=== PATIENT | female | born 1955 | race Caucasian/White ===

== ENCOUNTER 2017-01-30 12:17 | Inpatient (IN) | payer MEDICARE ==
[2017-01-30] VITALS (26 sets, daily range): BP systolic 96–121; BP diastolic 46–73
[~2017-01-30] VITALS: Ht 162.6 cm; Wt 55.0 kg
[~2017-01-30 12:17] MED LIST: ACETAMIN PO; AMITRIPTYLINE 225 MG PO; AMLODIPINE5 M1 PO; ASPIRIN 325MG325 MG PO; ATORVASTATIN CA40 MG PO; BENTYL20 M1 PO; BUTAL PO; CARBAMAZEPINE200 M3 PO; DICLOFENAC 50MG50 MG PO; DICYCLOMINE HCL20 MG PO; DULERA1 ARO IH; FLORASTOR250 M1 PO; FLUOXETINE20 MG PO; FUROSEMIDE 40MG40 M1 PO; GABAPENTIN300 MG PO; KEPPRA250 MG PO; LOMOTIL 2.5MG.2.5 MG PO; LOSARTAN POTAS100 MG PO; METOCLOPRAMIDE10 M2 PO; METOPROLOL50 MG PO; MICRO-K 10 MEQ10 MEQ PO; NAPROSYN 500MG500 MG PO; OMEPRAZOLE DR20 MG PO; PRAVASTATIN SOD80 MG PO; PROAIR HFA0.09 MG/AC IH; SYMBICORT 10.10.2 M1 IH; VITAMIN B121000 MC2 SL; VITAMIN D32000 I2 PO
--- NOTE | 2017-01-30 13:19 | PHARMACY CLINIC NOTE ---
Patient Demographics Patient Demographics Admission date: 01/30/17 Date: 01/30/17 Time: 1319 Allergies Coded Allergies: No Known Allergies (09/19/16) HEIGHT- FT: 5 IN: 4.00 VTE General Information Disclaimer The following section includes nursing documentation that has been pulled in for pharmacy review. VTE prophylaxis [id number] VTE prophylaxis ordered? Yes Type of prophylaxis/treatment: NELLIE at [id number]
[2017-01-30 14:20] LABS: LYMPH # 2.2 K/mm3 (0.7-4.5); LYMPH % 15.4 % (10-50.0)
[2017-01-30 14:25] LABS: HEMOGLOBIN 4.7 g/dL (12.2-16.2)
[2017-01-30] MEDS ORDERED: DICLOFENAC SODI75 M3 PO (15:28)
[2017-01-30] MEDS ORDERED: LIALDA1.2 GM PO (15:30)
--- NOTE | 2017-01-30 15:32 | HISTORY AND PHYSICAL REPORT ---
History and Physical ([facility]) Date of admission: 01/30/17 Chief complaint: anemia; diarrhea, nausea and vomiting History: History of Present Illness: Ms Martinez is a 61 year old female with a history of Seizure disorder, ASCVD, PVD, HTN, COPD and newly diagnosed Crohns disease who presented to the office of [facility] with nausea, vomiting and diarrhea. She stated that she had been vomiting for about 3 days and unable to retain food or fluids. Her also stated that she was unable to retain her medications. She did have some bloody stools but no hematemesis. In the office she was noted to be very pale. CBC revealed a H&H of 4.2/16 with a WBC of 27.1. She was then directed to [facility] for adm for PRBC infusion and further evaluation and treatment. Patient describes fever, abdominal discomfort. She states that she has not felt well for awhile. He adds that her sister was sick and just . Romina has been sleeping most of the time for about 1 1/2 weeks. She has been followed by Dr. Adam. Colonoscopy 10/2017 reveal Crohn's. She became constipated and was started on Miralaz with metamucil after which she developed diarrhea. When she saw Dr. Mike in the office this had cleared and she had just started to eat again. H&H at that time was 11.8/36.5. Past Medical History: Medical History: CAD? Yes Angina: No DC: Yes Hypertension? Yes Hyperlipidemia? Yes CHF? No DVT? No PE? No COPD? Yes Asthma? Yes Anemia? Yes GERD? Yes Gastric ulcers? No GI Bleed? No Hernia? No Thyroid Problems? No Hypothyroidism? No CVA? No Seizures? Yes Diabetes? No Renal Insuffiency? No UTI? No Stones? No GB Disease: No Nephritic Syndrome? No Asplenia? No Hepatitis? No Sickle Cell Disease? No Arthritis? No Migraines? Yes Cataracts? No Glaucoma? No MRSA? No HIV? No TB? No Anxiety? Yes Depression? Yes Cancer? No More? Yes Additional hx: CDIFF ANEMIA Crohns Ischemic colitis Surgical history: Previous Surgery?Y HysterectPARTIAL CABG X 3 NECK SX FOR DISC TOE AMPUTATION LEG STENT SPINAL STIMULATOR Allergies: Coded Allergies: prednisone (01/30/17) Family History: Family history: Postive for: CAD. Social History: Smoking Hx Tobacco: No Smoker: Former Smoker Type: Cigarettes Packs/day: 1 1/2 - 2 Packs Are you exposed to second hand No Alcohol: Alcohol: No Hx of Drug Use: Drug Use? No Patien't marital status is: Review of Systems: Constitutional Positive for: chills, fatigue, weak. ENT No: sore throat. Cardiovascular Positive for: edema, palpitations. No: chest pain. Respiratory Positive for: shortness of air, hemoptysis, non-productive. GI Positive for: GERD, diarrhea, hematochezia, nausea, vomitting. No: constipation , hematemeis, melena. (female) No: frequency, hematuria. Neurological Positive for: dizziness, headache, light headed, seizure, weakness. No: confusion, syncope. Musculoskeletal Positive for: joint pain. Physical Exam: Vital signs: 1ST Vital Signs Result Date Time Pulse Ox 100 01/30 1359 B/P 111/70 01/30 1359 O2 Delivery ROOM AIR 01/30 1359 Temp 100.0 01/30 135 Pulse 100 01/30 1359 Resp 20 01/30 1359 Exam: General appearance: alert, no acute distress, thin (frail), fever, chilling; lying with eyes closed; responds readily Eyes: anicteric ENT: dry mucous membranes Neck: non-tender, no carotid bruit, lymphadenopathy (absent), thyroid (normal ) Cardiovascular: regular rate & rhythm (HR 95/min on monitor) Respiratory: clear to auscultation, diminished breath sounds (posterior) ABD: non-distended, soft, bowel sounds present, tenderness, diffusely tender Extremities: no peripheral edema, no calf tenderness, NELLIE hose on Skin: dry, warm, pale Neuro: alert, oriented, speech clear Lab data: Labs: Laboratory Tests 01/30/17 1350: Sodium 131 L, Potassium 4.1, Chloride 97 L, Carbon Dioxide 12 L, BUN 7, Creatinine 1.0, Estimated Creat Clear 44 L, Estimated GFR (MDRD) 57 L, Glucose 138 H, Calcium 7.8 L, Ferritin 91, Total Bilirubin 0.5, AST 20, ALT 20, Alkaline Phosphatase 112, Total Protein 5.8 L, Albumin 1.6 L, Globulin 4.2 H, Albumin/Globulin Ratio 0.4 L, Amylase 45, Lipase 34 L, WBC 14.2 H, RBC 1.64 L, Hgb 4.7 *L, Hct 16.1 *L, MCV 98.5 H, RDW 16.7, Plt Count 651 H, MPV 6.5 L, Gran % 79.9, Gran # 11.4 H, Lymphocytes % 15.4, Monocytes % 4.7, Eosinophils % 0.0 L, Basophils % 0.1, Lymphocytes # 2.2, Monocytes # 0.7, Eosinophils # 0.0, Basophils # 0.0, PUBS MCHC 29.3 L, MCH 28.9 Microbiology 01/30 1400 BLOOD: Anaerobic Blood Culture - RECD 01/30 1400 BLOOD: Aerobic Blood Culture - RECD 01/30 1350 BLOOD: Anaerobic Blood Culture - RECD 01/30 1350 BLOOD: Aerobic Blood Culture - RECD Diagnosis(es): 1. Crohn's colitis 2. Anemia Status: Resolved 3. Acute gastroenteritis 4. Leukocytosis 5. Seizure disorder Status: Chronic Plan: abx; diarrhea studies; will give 4 units of PRBC now; blood cultures; DUonebs Further tests and tx will be dependent on patient response and test results. (Radha Quiroz APRN) Past Medical History: Medications: Active Scripts BUDESONIDE/FORMOTEROL FUMARATE (Symbicort 160-4.5 Mcg Inhaler) 2 PUFFS IH BID #1 AER Ref 2 Prov: 10/04/16 Discontinued Scripts Saccharomyces Boulardii (Florastor) 250 MG PO TID #90 CAP Ref 2 Prov: 10/04/16 DC: 01/30/17 1530 Dicyclomine Hcl (Dicyclomine Tab) 20 MG PO Q6HP PRN abdominal cramping #30 TAB Ref 2 Prov: 10/04/16 DC: 01/30/17 1530 Reported Medications Diclofenac Sodium (Diclofenac Sodium Dr) 75 MG PO BID Levetiracetam (Keppra) 250 MG PO BID BUTALBIT/ACETAMIN/CAFF/CODEINE (Pnypwk-Rklb-Egqyqohbdce-Codein) 1 EACH PO Q6HP PRN MIGRAINES Furosemide 20 MG PO DAILY Atorvastatin Calcium 40 MG PO QHS #30 TAB POTASSIUM CHL (Potassium Chloride) 10 MEQ PO QHS Mesalamine (Lialda) 2.4 GM PO BID L Gasseri/B Bifidum/B Longum (Secure[employer] Colon Health Capsule) 1 EACH PO DAILY Omeprazole (Omeprazole Dr) 20 MG PO DAILY Amitriptyline Hcl (Amitriptyline) 25 MG PO QHS Diagnosis(es): 1. Anemia Status: Acute 2. Nausea and vomiting in adult Status: Acute 3. Acute gastroenteritis Status: Acute 4. Leukocytosis Status: Acute 5. Seizure disorder Status: Chronic 6. Tobacco abuse Status: Chronic 7. Hyperlipemia Status: Chronic 8. HTN (hypertension) Status: Chronic 9. COPD (chronic obstructive pulmonary disease) Status: Chronic 10. Colitis Status: Chronic 11. Malnutrition, calorie Status: Chronic 12. Fever Status: Acute 13. Underweight Status: Chronic 14. Hx of CABG Status: Chronic 15. History of CHF (congestive heart failure) Status: Chronic 16. CAD (coronary artery disease) Status: Chronic Plan: Patient seen in the office today and again here at [facility]. Will transfuse 4 units of PRBCs tonight and treat with Rocephin and Flagyl, await cultures and stool studies. (Chapito Carlos MD) at 1531 at [phone]
--- NOTE | 2017-01-30 15:32 | HISTORY AND PHYSICAL REPORT ---
History and Physical ([facility]) Date of admission: 01/30/17 Chief complaint: anemia; diarrhea, nausea and vomiting History: History of Present Illness: Ms Martinez is a 61 year old female with a history of Seizure disorder, ASCVD, PVD, HTN, COPD and newly diagnosed Crohns disease who presented to the office of [facility] with nausea, vomiting and diarrhea. She stated that she had been vomiting for about 3 days and unable to retain food or fluids. Her also stated that she was unable to retain her medications. She did have some bloody stools but no hematemesis. In the office she was noted to be very pale. CBC revealed a H&H of 4.2/16 with a WBC of 27.1. She was then directed to [facility] for adm for PRBC infusion and further evaluation and treatment. Patient describes fever, abdominal discomfort. She states that she has not felt well for awhile. He adds that her sister was sick and just . Romina has been sleeping most of the time for about 1 1/2 weeks. She has been followed by Dr. Adam. Colonoscopy 10/2017 reveal Crohn's. She became constipated and was started on Miralaz with metamucil after which she developed diarrhea. When she saw Dr. Mike in the office this had cleared and she had just started to eat again. H&H at that time was 11.8/36.5. Past Medical History: Medical History: CAD? Yes Angina: No AK: Yes Hypertension? Yes Hyperlipidemia? Yes CHF? No DVT? No PE? No COPD? Yes Asthma? Yes Anemia? Yes GERD? Yes Gastric ulcers? No GI Bleed? No Hernia? No Thyroid Problems? No Hypothyroidism? No CVA? No Seizures? Yes Diabetes? No Renal Insuffiency? No UTI? No Stones? No GB Disease: No Nephritic Syndrome? No Asplenia? No Hepatitis? No Sickle Cell Disease? No Arthritis? No Migraines? Yes Cataracts? No Glaucoma? No MRSA? No HIV? No TB? No Anxiety? Yes Depression? Yes Cancer? No More? Yes Additional hx: CDIFF ANEMIA Crohns Ischemic colitis Surgical history: Previous Surgery?Y HysterectPARTIAL CABG X 3 NECK SX FOR DISC TOE AMPUTATION LEG STENT SPINAL STIMULATOR Allergies: Coded Allergies: prednisone (01/30/17) Family History: Family history: Postive for: CAD. Social History: Smoking Hx Tobacco: No Smoker: Former Smoker Type: Cigarettes Packs/day: 1 1/2 - 2 Packs Are you exposed to second hand No Alcohol: Alcohol: No Hx of Drug Use: Drug Use? No Patien't marital status is: Review of Systems: Constitutional Positive for: chills, fatigue, weak. ENT No: sore throat. Cardiovascular Positive for: edema, palpitations. No: chest pain. Respiratory Positive for: shortness of air, hemoptysis, non-productive. GI Positive for: GERD, diarrhea, hematochezia, nausea, vomitting. No: constipation , hematemeis, melena. (female) No: frequency, hematuria. Neurological Positive for: dizziness, headache, light headed, seizure, weakness. No: confusion, syncope. Musculoskeletal Positive for: joint pain. Physical Exam: Vital signs: 1ST Vital Signs Result Date Time Pulse Ox 100 01/30 1359 B/P 111/70 01/30 1359 O2 Delivery ROOM AIR 01/30 1359 Temp 100.0 01/30 135 Pulse 100 01/30 1359 Resp 20 01/30 1359 Exam: General appearance: alert, no acute distress, thin (frail), fever, chilling; lying with eyes closed; responds readily Eyes: anicteric ENT: dry mucous membranes Neck: non-tender, no carotid bruit, lymphadenopathy (absent), thyroid (normal ) Cardiovascular: regular rate & rhythm (HR 95/min on monitor) Respiratory: clear to auscultation, diminished breath sounds (posterior) ABD: non-distended, soft, bowel sounds present, tenderness, diffusely tender Extremities: no peripheral edema, no calf tenderness, NELLEI hose on Skin: dry, warm, pale Neuro: alert, oriented, speech clear Lab data: Labs: Laboratory Tests 01/30/17 1350: Sodium 131 L, Potassium 4.1, Chloride 97 L, Carbon Dioxide 12 L, BUN 7, Creatinine 1.0, Estimated Creat Clear 44 L, Estimated GFR (MDRD) 57 L, Glucose 138 H, Calcium 7.8 L, Ferritin 91, Total Bilirubin 0.5, AST 20, ALT 20, Alkaline Phosphatase 112, Total Protein 5.8 L, Albumin 1.6 L, Globulin 4.2 H, Albumin/Globulin Ratio 0.4 L, Amylase 45, Lipase 34 L, WBC 14.2 H, RBC 1.64 L, Hgb 4.7 *L, Hct 16.1 *L, MCV 98.5 H, RDW 16.7, Plt Count 651 H, MPV 6.5 L, Gran % 79.9, Gran # 11.4 H, Lymphocytes % 15.4, Monocytes % 4.7, Eosinophils % 0.0 L, Basophils % 0.1, Lymphocytes # 2.2, Monocytes # 0.7, Eosinophils # 0.0, Basophils # 0.0, PUBS MCHC 29.3 L, MCH 28.9 Microbiology 01/30 1400 BLOOD: Anaerobic Blood Culture - RECD 01/30 1400 BLOOD: Aerobic Blood Culture - RECD 01/30 1350 BLOOD: Anaerobic Blood Culture - RECD 01/30 1350 BLOOD: Aerobic Blood Culture - RECD Diagnosis(es): 1. Crohn's colitis 2. Anemia Status: Resolved 3. Acute gastroenteritis 4. Leukocytosis 5. Seizure disorder Status: Chronic Plan: abx; diarrhea studies; will give 4 units of PRBC now; blood cultures; DUonebs Further tests and tx will be dependent on patient response and test results. (Radha Quiroz APRN) Past Medical History: Medications: Active Scripts BUDESONIDE/FORMOTEROL FUMARATE (Symbicort 160-4.5 Mcg Inhaler) 2 PUFFS IH BID #1 AER Ref 2 Prov: 10/04/16 Discontinued Scripts Saccharomyces Boulardii (Florastor) 250 MG PO TID #90 CAP Ref 2 Prov: 10/04/16 DC: 01/30/17 1530 Dicyclomine Hcl (Dicyclomine Tab) 20 MG PO Q6HP PRN abdominal cramping #30 TAB Ref 2 Prov: 10/04/16 DC: 01/30/17 1530 Reported Medications Diclofenac Sodium (Diclofenac Sodium Dr) 75 MG PO BID Levetiracetam (Keppra) 250 MG PO BID BUTALBIT/ACETAMIN/CAFF/CODEINE (Bpvbyo-Wcui-Xrznihhjmui-Codein) 1 EACH PO Q6HP PRN MIGRAINES Furosemide 20 MG PO DAILY Atorvastatin Calcium 40 MG PO QHS #30 TAB POTASSIUM CHL (Potassium Chloride) 10 MEQ PO QHS Mesalamine (Lialda) 2.4 GM PO BID L Gasseri/B Bifidum/B Longum ([employer] Colon Health Capsule) 1 EACH PO DAILY Omeprazole (Omeprazole Dr) 20 MG PO DAILY Amitriptyline Hcl (Amitriptyline) 25 MG PO QHS Diagnosis(es): 1. Anemia Status: Acute 2. Nausea and vomiting in adult Status: Acute 3. Acute gastroenteritis Status: Acute 4. Leukocytosis Status: Acute 5. Seizure disorder Status: Chronic 6. Tobacco abuse Status: Chronic 7. Hyperlipemia Status: Chronic 8. HTN (hypertension) Status: Chronic 9. COPD (chronic obstructive pulmonary disease) Status: Chronic 10. Colitis Status: Chronic 11. Malnutrition, calorie Status: Chronic 12. Fever Status: Acute 13. Underweight Status: Chronic 14. Hx of CABG Status: Chronic 15. History of CHF (congestive heart failure) Status: Chronic 16. CAD (coronary artery disease) Status: Chronic Plan: Patient seen in the office today and again here at [facility]. Will transfuse 4 units of PRBCs tonight and treat with Rocephin and Flagyl, await cultures and stool studies. (Chapito Carlos MD) at 1531 at [phone]
[2017-01-30] MEDS ORDERED: PHILLIPS' COLO1 EACH PO (15:50)
[2017-01-30 15:55] LABS: ABO BLOOD TYPE O; ANTIHUMAN GLOB CROSSMATCH COMPAT; RH BLOOD TYPE NEGATIVE
[2017-01-30 15:56] LABS: ANTIHUMAN GLOB CROSSMATCH COMPAT
[2017-01-30 21:35] LABS: URINE BILIRUBIN - DIPSTICK NEGATIVE (NEG); URINE BLOOD NEGATIVE (NEG)
[2017-01-30 21:45] LABS: URINE SQUAMOUS CELLS OCC #/hpf (0-5)
[2017-01-31] VITALS (31 sets, daily range): BP systolic 101–160; BP diastolic 58–92
[2017-01-31 00:35] LABS: ANTIHUMAN GLOB CROSSMATCH COMPAT
--- NOTE | 2017-01-31 08:26 | ACUTE CARE PROGRESS NOTE (QUA) ---
Progress Notes Subjective Date 01/31/17 Time 0821 Note Patient states she has had a horrible night. She states she's had stomach cramps all night long that are very severe. She denies any nausea, vomiting, or diarrhea. She did get blood last night. Objective Findings Last VS-Temp:97.5 B/P:133/85 Pulse:78 Resp:18 SaO2:99 ROOM AIR Last weight lbs:101 oz:3 K.898 Method:Bed Scales Laboratory Tests 01/31/17 0505: Misc Test Units BLOOD UNIT RELEASE 01/31/17 0034: Misc Test Units BLOOD UNIT RELEASE 01/30/17 1925: Misc Test Units BLOOD UNIT RELEASE 01/30/17 1604: Misc Test Units BLOOD UNIT RELEASE 01/30/17 1350: MCH 28.9 01/30/17 1350: Sodium 131 L, Potassium 4.1, Chloride 97 L, Carbon Dioxide 12 L, BUN 7, Creatinine 1.0, Estimated Creat Clear 44 L, Estimated GFR (MDRD) 57 L, Glucose 138 H, Calcium 7.8 L, Ferritin 91, Total Bilirubin 0.5, AST 20, ALT 20, Alkaline Phosphatase 112, Total Protein 5.8 L, Albumin 1.6 L, Globulin 4.2 H, Albumin/Globulin Ratio 0.4 L, Amylase 45, Lipase 34 L, WBC 14.2 H, RBC 1.64 L, Hgb 4.7 *L, Hct 16.1 *L, MCV 98.5 H, RDW 16.7, Plt Count 651 H, MPV 6.5 L, Gran % 79.9, Gran # 11.4 H, Lymphocytes % 15.4, Monocytes % 4.7, Eosinophils % 0.0 L, Basophils % 0.1, Lymphocytes # 2.2, Monocytes # 0.7, Eosinophils # 0.0, Basophils # 0.0, PUBS MCHC 29.3 L, Antibody Screen NEGATIVE, Miscellaneous Test NEGATIVE Microbiology 01/30 1400 BLOOD: Anaerobic Blood Culture - RECD 01/30 1400 BLOOD: Aerobic Blood Culture - RECD 01/30 1350 BLOOD: Anaerobic Blood Culture - RECD 01/30 1350 BLOOD: Aerobic Blood Culture - RECD Exam General appearance: alert, awake, does not appear to feel well Cardiovascular: regular rate & rhythm Respiratory: clear to auscultation ABD: non-distended, no rebound, soft, no guarding, diffusely ttp but worse in the epigastric area, hypoactive BS Assessment/Plan Problem List 1. Anemia Status: Acute 2. Nausea and vomiting in adult Status: Acute 3. Acute gastroenteritis Status: Acute 4. Leukocytosis Status: Acute 5. Seizure disorder Status: Chronic 6. Tobacco abuse Status: Chronic 7. Hyperlipemia Status: Chronic 8. HTN (hypertension) Status: Chronic 9. COPD (chronic obstructive pulmonary disease) Status: Chronic 10. Colitis Status: Chronic 11. Malnutrition, calorie Status: Chronic 12. Fever Status: Acute 13. Underweight Status: Chronic 14. Hx of CABG Status: Chronic 15. History of CHF (congestive heart failure) Status: Chronic 16. CAD (coronary artery disease) Status: Chronic Plan: Still awaiting labs today. Will discuss giving the patient something for abdominal cramping with Dr. Carlos. We will also get an amylase and lipase. This inpt stay is expected to cross 2 MNs from start of care Yes (Veronica Ludwig) Assessment/Plan Problem List 1. Anemia Status: Acute 2. Nausea and vomiting in adult Status: Acute 3. Acute gastroenteritis Status: Acute 4. Leukocytosis Status: Acute 5. Seizure disorder Status: Chronic 6. Tobacco abuse Status: Chronic 7. Hyperlipemia Status: Chronic 8. HTN (hypertension) Status: Chronic 9. COPD (chronic obstructive pulmonary disease) Status: Chronic 10. Colitis Status: Chronic 11. Malnutrition, calorie Status: Chronic 12. Fever Status: Acute 13. Underweight Status: Chronic 14. Hx of CABG Status: Chronic 15. History of CHF (congestive heart failure) Status: Chronic 16. CAD (coronary artery disease) Status: Chronic Comments: Patient seen and agree with above note. (Chapito Carlos MD) at 0826 at 0901
[2017-01-31 08:41] LABS: Iron 17 ug/dL (27-159); Iron Saturation 7 % (15-55); UIBC 216 ug/dL (131-425)
[2017-01-31 08:45] LABS: LYMPH # 0.5 K/mm3 (0.7-4.5); LYMPH % 3.5 % (10-50.0)
[2017-01-31 08:50] LABS: HEMOGLOBIN 13.3 g/dL (12.2-16.2)
[2017-01-31 10:56] LABS: NEUTROPHILS 71 % (42-76)
[2017-02-01] VITALS (31 sets, daily range): BP systolic 105–158; BP diastolic 72–95
[2017-02-01 05:52] LABS: HEMOGLOBIN 13.2 g/dL (12.2-16.2); LYMPH # 0.7 K/mm3 (0.7-4.5); LYMPH % 3.3 % (10-50.0)
[2017-02-01 08:27] LABS: URINE BLOOD NEGATIVE (NEG)
--- NOTE | 2017-02-01 08:29 | ACUTE CARE PROGRESS NOTE (QUA) ---
Progress Notes Subjective Date 02/01/17 Time 0821 Note Pt states she feels worse today. Her abdomen is hurting all over but worse in the epigastric area. She has had an episode of vomiting. No diarrhea. Nursing is concerned because her urine looks like "tea." They are going to send off a urine for a U/A and culture. She is still very weak and did not rest well last night. She also had an episode of sinus tachycardia in the middle of the night with a HR in the 160's. Her HR has decreased this am. Objective Findings Last VS-Temp:99.3 B/P:125/85 Pulse:109 Resp:18 SaO2:98 ROOM AIR Last weight lbs:101 oz:3 K.898 Method:Bed Scales Laboratory Tests 02/01/17 0525: Sodium 127 L, Potassium 3.9, Chloride 100, Carbon Dioxide 21 L, BUN 8, Creatinine 0.7, Estimated Creat Clear 63, Estimated GFR (MDRD) 86, Glucose 148 H, Calcium 7.9 L, Total Bilirubin 0.5, AST 67 H, ALT 76, Alkaline Phosphatase 110, Total Protein 6.0 L, Albumin 1.3 L, Globulin 4.7 H, Albumin/Globulin Ratio 0.3 L, WBC 21.3 *H, RBC 4.59, Hgb 13.2, Hct 39.9, MCV 86.8, RDW 16.4, Plt Count 299, MPV 6.2 L, Gran % 93.1 H, Gran # 19.5 H, Lymphocytes % 3.3 L, Monocytes % 3.3, Eosinophils % 0.1, Basophils % 0.1, Lymphocytes # 0.7, Monocytes # 0.7, Eosinophils # 0.0, Basophils # 0.0, PUBS MCHC 33.0, MCH 28.7 Microbiology 02/01 08 URINE CC: Urine Culture - ORD Exam General appearance: awake, lethargic, Does not appear to feel well Cardiovascular: regular rhythm, tachycardic Respiratory: clear to auscultation ABD: diffusely ttp, worse in the epigastric area, hypoactive BS Extremities: no peripheral edema Assessment/Plan Problem List 1. Anemia Status: Acute 2. Nausea and vomiting in adult Status: Acute 3. Acute gastroenteritis Status: Acute 4. Leukocytosis Status: Acute 5. Seizure disorder Status: Chronic 6. Tobacco abuse Status: Chronic 7. Hyperlipemia Status: Chronic 8. HTN (hypertension) Status: Chronic 9. COPD (chronic obstructive pulmonary disease) Status: Chronic 10. Colitis Status: Chronic 11. Malnutrition, calorie Status: Chronic 12. Fever Status: Acute 13. Underweight Status: Chronic 14. Hx of CABG Status: Chronic 15. History of CHF (congestive heart failure) Status: Chronic 16. CAD (coronary artery disease) Status: Chronic 17. Hyponatremia Status: Acute Plan: Pt's H&H is stable but her WBC has increased and her sodium has decreased. Will get a U/A with culture today and discuss with Dr. Carlos. She may need a CT of the abdomen. This inpt stay is expected to cross 2 MNs from start of care Yes (Veronica Ludwig) Assessment/Plan Problem List 1. Anemia Status: Acute 2. Nausea and vomiting in adult Status: Acute 3. Acute gastroenteritis Status: Acute 4. Leukocytosis Status: Acute 5. Seizure disorder Status: Chronic 6. Tobacco abuse Status: Chronic 7. Hyperlipemia Status: Chronic 8. HTN (hypertension) Status: Chronic 9. COPD (chronic obstructive pulmonary disease) Status: Chronic 10. Colitis Status: Chronic 11. Malnutrition, calorie Status: Chronic 12. Fever Status: Acute 13. Underweight Status: Chronic 14. Hx of CABG Status: Chronic 15. History of CHF (congestive heart failure) Status: Chronic 16. CAD (coronary artery disease) Status: Chronic 17. Hyponatremia Status: Acute Comments: Patient seen this morning. Plan om increasing IVF today, UA was done on admit. Will check CT of Abd/Pelvis today. (Chapito Carlos MD) at 0828 at [phone]
--- NOTE | 2017-02-01 13:52 | RADIOLOGY REPORT PS360 ---
CT ABD PELVIS W/ CONTRAST CLINICAL INDICATION: ABD PAIN HX OF CHRONIC COLITIS ORDERING PHYSICIAN: Chapito Carlos MD PATIENT AGE: 61 years COMPARISON: 09/24/2016 TECHNIQUE: Axial images obtained with sagittal and coronal reformats. PROCEDURE: Oral Contrast: Redicat IV Contrast: 75 mL's [id number] . FINDINGS: There is a small left pleural effusion with consolidation in the left lung base posteriorly. Mild consolidation is present in the right lung base posteriorly with trace right-sided effusion. There is a large pneumoperitoneum as well small amount of fluid within the right paracolic gutter and a small amount fluid in the pelvis. The spleen has an abnormal appearance within normal density centrally and decreased attenuation peripherally. Splenic infarction is a consideration. A small amount of free air noted around the spleen. The bowel does not appear significantly distended. There is overall some minimal thickening of the antrum of the stomach and mild thickening of the colon. Small amount of gas is present in the left peritoneal region and along the left splenic flexure. There is a mild amount retained colonic feces. There is mild gaseous distention of the transverse colon The gallbladder is slightly distended and there is evidence of cholelithiasis. There is minimal prominence of the intrahepatic biliary radicles. The pancreas and adrenal glands have an unremarkable appearance. Nonobstructing punctate stone is present in the lower pole the right kidney. Urinary bladder is distended. IMPRESSION: 1. Pneumoperitoneum consistent with ruptured viscus. 2. Mild thickening of the colon with moderate amount retained colonic feces. The colonic wall thickening has improved when compared to the previous exam. 3. Cholelithiasis with distended gallbladder. 4. Bibasilar airspace disease with small bilateral pleural effusions Critical result called to Breanna on 02/01/2017 1:37 PM.
--- NOTE | 2017-02-01 14:04 | ACUTE CARE PROGRESS NOTE (QUA) ---
Progress Notes Subjective Date 02/01/17 Time 1401 Objective Findings Just spoke to Dr. Duran and reviewed patient's CT scan. It shows a pneumoperitoneum. Assessment/Plan Problem List 1. Pneumoperitoneum of unknown etiology Status: Acute 2. Anemia Status: Acute 3. Nausea and vomiting in adult Status: Acute 4. Acute gastroenteritis Status: Acute 5. Leukocytosis Status: Acute 6. Seizure disorder Status: Chronic 7. Tobacco abuse Status: Chronic 8. Hyperlipemia Status: Chronic 9. HTN (hypertension) Status: Chronic 10. COPD (chronic obstructive pulmonary disease) Status: Chronic 11. Colitis Status: Chronic 12. Malnutrition, calorie Status: Chronic 13. Fever Status: Acute 14. Underweight Status: Chronic 15. Hx of CABG Status: Chronic 16. History of CHF (congestive heart failure) Status: Chronic 17. CAD (coronary artery disease) Status: Chronic 18. Hyponatremia Status: Acute This inpt stay is expected to cross 2 MNs from start of care Yes Comments: Called Dr. Valente and consulted him about new finding of pneumoperitoneum. He agrees to see patient. at 1401
--- NOTE | 2017-02-01 14:33 | CONSULT NOTE ---
Standard Demographics Patient Demo Date of Consultation: 02/01/17 Referring Provider: Chapito Carlos MD Reason for Consultation: abdominal pain pneumoperitoneum PRIMARY DIAGNOSIS: ANEMIA AND LEUKOCYTOSIS Allergies: Coded Allergies: prednisone (01/30/17) History of Present Illness Chief Complaint: Abdominal pain History of Present Illness: Patient is a 61-year-old white female with relatively newly diagnosed Crohn's disease. She had been admitted in September and I had performed colonoscopy as an inpatient which revealed diffuse severe colitis and ischemic colitis was entertained. However, biopsies were consistent with Crohn's. She followed up with Dr. Adam he performed another colonoscopy in October which apparently revealed improving colitis. Patient had presented to her primary physician's office the afternoon of 01/30/17 and she was found to be anemic with some vomiting and diarrhea for several days. She was admitted for inpatient management and transfused. She had significantly increasing abdominal pain and distention and underwent CT scan this afternoon. This reveals a large amount of pneumoperitoneum. Surgical consultation was obtained. Past Medical History Reports: CAD, hypertension, asthma, seizure disorder. Surgical History Previous Surgery?Y HysterectPARTIAL CABG X 3 NECK SX FOR DISC TOE AMPUTATION LEG STENT SPINAL STIMULATOR Allergies Coded Allergies: prednisone (01/30/17) Medications: Discontinued Scripts Saccharomyces Boulardii (Florastor) 250 MG PO TID #90 CAP Ref 2 Prov: 10/04/16 DC: 01/30/17 1530 Dicyclomine Hcl (Dicyclomine Tab) 20 MG PO Q6HP PRN abdominal cramping #30 TAB Ref 2 Prov: 10/04/16 DC: 01/30/17 1530 Reported Medications Diclofenac Sodium (Diclofenac Sodium Dr) 75 MG PO BID Furosemide 20 MG PO DAILY Levetiracetam (Keppra) 250 MG PO BID BUTALBIT/ACETAMIN/CAFF/CODEINE (Jfdvfe-Hvdf-Tluguoiewzi-Codein) 1 EACH PO Q6HP PRN MIGRAINES Mesalamine (Lialda) 2.4 GM PO BID Atorvastatin Calcium 40 MG PO QHS #30 TAB POTASSIUM CHL (Potassium Chloride) 10 MEQ PO QHS L Gasseri/B Bifidum/B Longum ([employer] Colon Health Capsule) 1 EACH PO DAILY Omeprazole (Omeprazole Dr) 20 MG PO DAILY Amitriptyline Hcl (Amitriptyline) 25 MG PO QHS Smoking Hx Tobacco: No Smoker: Former Smoker Type: Cigarettes Packs/day: 1 1/2 - 2 Packs Are you/the child exposed to second-hand smoke: No Alcohol Alcohol: No Hx of Drug Use Drug Use? No Physical Exam VS/I&O Vital Signs Date Time Temp Pulse Resp B/P Pulse O2 O2 Flow FiO2 Ox Delivery Rate 02/01 0952 24 02/01 0800 99.3 115 18 133/89 98 ROOM AIR 02/01 0600 109 18 125/85 98 ROOM AIR 02/01 0414 99.3 109 18 158/95 97 02/01 0409 18 02/01 0400 99.4 109 18 158/95 99 ROOM AIR 02/01 0200 106 18 149/91 98 ROOM AIR 02/01 0000 106 18 150/92 97 ROOM AIR 01/31 2303 18 01/31 2200 101 18 149/90 97 ROOM AIR 01/31 2020 98.5 102 18 157/89 98 01/31 2000 98.5 102 18 155/92 97 ROOM AIR 01/31 1900 101 18 160/90 98 ROOM AIR 01/31 1800 98 18 156/91 98 ROOM AIR 01/31 1730 16 03 1700 92 18 155/92 97 ROOM AIR 01/31 1600 98.5 101 18 160/90 98 01/31 1600 98.5 96 18 156/88 96 ROOM AIR 01/31 1500 90 18 141/86 97 ROOM AIR I&O 02/01 0700 Intake Total 2801 Output Total 600 Balance 2201 Intake, IV 1961 Intake, Oral 840 Output, Urine 600 Exam General appearance lethargic Respiratory decreased breath sounds Cardiovascular tachycardia Abdomen distended, tympanic to percussion Findings/Data On examination her abdomen is distended with absent bowel sounds. She has diffuse tenderness with guarding and rebound. Plan Plan: Patient has significant peritonitis and large amount of pneumoperitoneum on CT scan. Arrangements are to be made for laparotomy. Underlying pathology is unknown at this time. Very likely patient will require colon resection with potential colostomy. This the patient. Arrangements are being made for emergent laparotomy. at 1433
--- NOTE | 2017-02-01 18:19 | Operative Note ---
Surgeon/Diagnoses Surgeon/String Studies Director(s) Date of procedure: 02/01/17 Surgeon: Douglas Valente String Studies Director(s): Atul Selby M.D. Diagnoses Pre-op diagnosis: Peritonitis, pneumoperitoneum Post-op diagnosis same Procedure Procedure Procedure: 1. Exploratory laparotomy with segmental colon resection (distal transverse) 2. Takedown of splenic flexure 3. Creation of end colostomy Indications: Patient is a 61-year-old white female with relatively newly diagnosed probable Crohn's disease. She had been admitted in September and I had performed colonoscopy as an inpatient which revealed diffuse severe colitis and ischemic colitis was entertained. However, biopsies were consistent with Crohn's. She followed up with Dr. Adam he performed another colonoscopy in October which revealed improving colitis but biopsies obtained near the splenic flexure were consistent with idiopathic inflammatory bowel disease consistent with prior biopsies of Crohn's disease. Patient had presented to her primary physician's office the afternoon of 01/30/17 and she was found to be anemic with some vomiting and diarrhea for several days. She was admitted for inpatient management and transfused. She had significantly increasing abdominal pain and distention and underwent CT scan this afternoon. This reveals a large amount of pneumoperitoneum. Surgical consultation was obtained. Patient was seen and examined found to be profoundly ill with peritonitis. Plan was made for emergent laparotomy. Findings: Patient had perforation of distal transverse colon just proximal to the splenic flexure with fecal peritonitis in the LEFT upper quadrant characterized by a large amount of liquid stool. Procedure Description: Consent was obtained and patient was taken to the operating room. She was given preoperative intravenous Invanz. In the operating room she was placed in a supine position. Gen. anesthesia was induced via endotracheal tube. Green catheter was placed for bladder decompression. Abdomen was prepped and draped in the standard surgical fashion. Midline incision was performed and dissection was carried down through subcu tissues and fascia. Peritoneum was entered. There was some intra-abdominal gas. Palpation within the abdomen revealed liquid stool in the LEFT upper quadrant. This is extremely foul-smelling. This was suctioned free. Incision was extended superiorly and inferiorly. She had a large perforation in the distal transverse colon just proximal to the splenic flexure. Colon was divided proximal to this where it appeared relatively healthy with a RIYA-75 type stapling device. Lesser omentum was divided with Saurav ultrasonic harmonic coreen entering the lesser sac. With some difficulty the colon was mobilized taking down the splenic flexure using Saurav ultrasonic harmonic coreen. Several hemoclips were placed along the larger branching vessels of the splenocolic ligament. Dissection was carried down to the descending colon. The colonic mesentery was sequentially clamped divided and ligated with Vicryl ties. Excellent descending colon was divided with a contour stapling device. Distal transverse and proximal descending colon containing the large perforation was sent off as a specimen. Nasogastric tube was placed by anesthesia and palpated to be within the stomach in a good position. The peritoneal cavity was then thoroughly irrigated with several liters of warm saline and aspirated until clear. Plan was made for and colostomy. Circular incision was made in the LEFT upper quadrant. Dissection was carried down to the anterior rectus fascia which was incised in a cruciate manner creating colostomy trephine. Distal transverse colon was delivered through the colostomy trephine. It was secured to the anterior rectus fascia with several 2-0 Vicryl sutures. There appeared to be good hemostasis. Fascia was then closed with running #2 Novafil 2. Subcutaneous tissues were thoroughly irrigated. Skin incision was closed with skin willy leaving several gaps superiorly and inferiorly for packing. Clean dry sterile dressing was applied. Once dressing was applied colostomy was matured by excising the previous staple line. Colostomy was matured suturing full-thickness colon to the surrounding skin with interrupted 3-0 chromic sutures. Colostomy appliance was then applied.patient was extubated and taken to PACU in stable condition EBL (ml): 150 Anesthesia: GETA Specimens: Distal transverse and proximal descending colon (splenic flexure). Disposition Disposition: To PACU at 1819
[2017-02-01 22:18] LABS: URINE BLOOD NEGATIVE (NEG)
[2017-02-01 22:22] LABS: URINE BILIRUBIN - DIPSTICK NEGATIVE (NEG)
[2017-02-02] VITALS (16 sets, daily range): BP systolic 104–137; BP diastolic 70–84
[2017-02-02 06:19] LABS: LYMPH # 0.7 K/mm3 (0.7-4.5); LYMPH % 4.8 % (10-50.0)
[2017-02-02 06:22] LABS: HEMOGLOBIN 11.4 g/dL (12.2-16.2)
--- NOTE | 2017-02-02 08:07 | POST-OP PROGRESS NOTE ---
Post op subjective data Subjective data: DEYANIRA ROSARIO is a 61 F . She is status post post op day # . Her wound is healing well without signs symptoms of infection.She reports her last pain level as 0 on a 0-10 pain scale. Patient feels okay other than some soreness. No major issues. Post op assessment findings Assessment Exam General appearance: normal appearance, alert ABD: soft, colostomy Post op patient plan Plan: Antibiotics, IV fluids This inpt stay is expected to cross 2 MNs from start of care Yes at 0807
[2017-02-02 08:15] LABS: NEUTROPHILS 59 % (42-76)
--- NOTE | 2017-02-02 08:44 | ACUTE CARE PROGRESS NOTE (QUA) ---
Progress Notes Subjective Date 02/02/17 Time 0837 Note Events since last note discussed with Dr. Valente. Patient had a perforation of the distal transverse colon. Operative note reviewed, colostomy in place now. Patient has less pain now. No new complaints today. Objective Findings Laboratory Tests 02/02/17 0550: Sodium 137, Potassium 3.9, Chloride 105, Carbon Dioxide 22, BUN 8, Creatinine 0.5 L, Estimated Creat Clear 110, Estimated GFR (MDRD) 126, Glucose 77, Calcium 7.4 L, Total Bilirubin 0.4, AST 64 H, ALT 57, Alkaline Phosphatase 81, Total Protein 3.8 L, Albumin 0.9 L, Globulin 2.9, Albumin/Globulin Ratio 0.3 L, WBC 14.7 H, RBC 4.08 L, Hgb 11.4 L, Hct 35.8 L, MCV 87.6, RDW 16.2, Plt Count 246, MPV 6.9 L, Gran % 92.4 H, Gran # 13.6 H, Total Counted 100, Lymphocytes % 4.8 L, Monocytes % 2.6, Eosinophils % 0.0 L, Basophils % 0.2, Neutrophils 59 , Band Neutrophils 30 H, Lymphocytes (Manual) 3 L, Lymphocytes # 0.7, Monocytes (Manual) 3, Monocytes # 0.4, Eosinophils # 0.0, Basophils # 0.0, Metamyelocytes 2 H, Atypical Lymphocytes 3, Platelet Estimate NORMAL, Poikilocytosis 1+, Anisocytosis 1+, Macrocytosis 1+, PUBS MCHC 32.0, MCH 28.0 02/01/17 1520: Urine Color DK YELLOW, Urine Appearance CLEAR, Urine pH 6.5, Ur Specific [place] 1.015, Urine Protein TRACE H, Urine Ketones NEGATIVE, Urine Blood NEGATIVE, Urine Nitrate POSITIVE H, Urine Bilirubin NEGATIVE, Urine Urobilinogen 0.2, Ur Leukocyte Esterase NEGATIVE, Urine WBC 3-5, Urine Glucose NEGATIVE Vital Signs Date Time Temp Pulse Resp B/P Pulse O2 O2 Flow FiO2 Ox Delivery Rate 02/02 0600 103 122/79 93 ROOM AIR 02/02 0400 97.9 106 15 127/79 94 02/02 0327 2 02/02 0327 94 ROOM AIR 02/02 0200 104 118/78 96 ROOM AIR 02/02 0130 98.1 102 15 113/76 96 1 02/02 0115 1 02/02 0030 97.7 104 15 108/71 95 1 02/02 0015 101 107/70 96 1 02/02 0007 20 02/02 0000 101 104/70 96 1 02/01 2345 102 109/73 96 1 02/01 2330 97.4 108 15 105/72 96 1 02/01 2315 111 117/77 98 1 02/01 2312 1 02/01 2300 99 108/72 98 1 02/01 2245 105 112/72 96 2 02/01 2230 97.9 106 14 112/75 96 2 02/01 2215 2 02/01 2215 103 107/73 96 2 02/01 2200 109 111/75 96 2 02/01 2145 102 111/77 96 2 02/01 2130 97.8 104 14 111/78 96 2 02/01 2115 107 110/72 96 2 02/01 2100 98.1 104 14 114/75 96 2 02/01 2059 133 26 136/93 96 02/01 2046 98.3 99 13 117/79 96 3 02/015 106.0 115/79 96 2 02/01 2041 98.3 02/01 2030 98.3 99 13 117/79 96 3 02/01 2015 106 114/73 96 3 02/02 2000 97.3 107 12 114/73 95 3 02/01 1945 98.0 101 14 129/80 97 4 02/01 1930 98.1 100 17 138/83 99 5 02/01 1915 97.5 103 17 132/84 98 5 02/01 1900 2 02/01 1900 2 02/01 1900 97.5 80 16 119/80 97 5 02/01 1900 97.5 108 16 119/80 97 5 02/01 1900 96 OXYGEN 2 02/01 1900 96 OXYGEN 2 02/01 1845 99.5 100 20 102/73 93 OXYGEN 02/01 1840 99.5 117 20 104/72 94 OXYGEN 02/01 1836 99.5 118 20 108/73 94 OXYGEN 02/01 1830 98.7 119 20 122/79 94 OXYGEN 02/01 1820 98.5 116 20 120/78 92 OXYGEN 02/01 1810 98.3 115 20 127/83 93 OXYGEN 02/01 1400 99.4 125 22 136/93 96 ROOM AIR 02/01 1200 99.3 114 22 136/89 96 ROOM AIR 02/01 1030 99.3 106 24 144/95 98 02/01 1000 99.3 106 24 144/95 98 ROOM AIR 02/01 0952 24 I&O Past 24 Hrs-ending at 0700 02/02 0700 Intake Total 3047 Output Total 2710 Balance 337 Last VS-Temp:97.9 B/P:122/79 Pulse:103 Resp:15 SaO2:93 ROOM AIR Last weight lbs:127 oz:3 K.691 Method:Bed Scales Exam General appearance: alert, awake, no acute distress ENT: NG tube in place Cardiovascular: regular rate & rhythm Respiratory: clear to auscultation ABD: soft, colostomy (functioning) Extremities: no peripheral edema Skin: warm Assessment/Plan Problem List 1. Perforation of colon Status: Acute 2. Colostomy in place Status: Acute 3. Crohn's colitis 4. Anemia Status: Acute 5. Leukocytosis Status: Acute 6. Seizure disorder Status: Chronic 7. Tobacco abuse Status: Chronic 8. Hyperlipemia Status: Chronic 9. HTN (hypertension) Status: Chronic 10. COPD (chronic obstructive pulmonary disease) Status: Chronic 11. Malnutrition, calorie Status: Chronic 12. Fever Status: Acute 13. Underweight Status: Chronic 14. Hx of CABG Status: Chronic 15. History of CHF (congestive heart failure) Status: Chronic 16. CAD (coronary artery disease) Status: Chronic 17. Hyponatremia Status: Acute This inpt stay is expected to cross 2 MNs from start of care Yes Comments: Patient is post op day #1, s/p exploratory laparotomy with colon resection due to perforation and colostomy placement. Continue routine post op care. at 0848
[2017-02-03] VITALS (13 sets, daily range): BP systolic 126–150; BP diastolic 77–92
[2017-02-03 06:56] LABS: HEMOGLOBIN 11.9 g/dL (12.2-16.2); LYMPH # 1.1 K/mm3 (0.7-4.5); LYMPH % 7.8 % (10-50.0)
--- NOTE | 2017-02-03 09:49 | POST-OP PROGRESS NOTE ---
See Addendum Post op subjective data Subjective data: DEYANIRA ROSARIO is a 61 F . She is status post post op day # . Her wound is healing well without signs symptoms of infection.She reports her last pain level as 0 on a 0-10 pain scale. Patient without significant complaints. She has had minor reflux type symptoms but no appreciable nausea. Post op assessment findings Assessment Exam General appearance: normal appearance ABD: non-distended, colostomy Comment: Abdomen is flat and nondistended. No ostomy output but ostomy is viable. Absent bowel sounds. Post op patient plan Plan: Antibiotics, IV fluids This inpt stay is expected to cross 2 MNs from start of care Yes Antibiotic Stewardship (2) Current Culture Results Microbiology 02/01 0600 URINE CC: Urine Culture - COMP 01/30 1400 BLOOD: Anaerobic Blood Culture - RES 01/30 1400 BLOOD: Aerobic Blood Culture - RES Infxn that will respond? Yes Right drug,dose,and route? Yes More targeted antbx? No How long atbx needed? 10 at 0948
[2017-02-03 10:43] LABS: NEUTROPHILS 86 % (42-76)
--- NOTE | 2017-02-03 12:49 | ACUTE CARE PROGRESS NOTE (QUA) ---
See Addendum Progress Notes Subjective Date 02/03/17 Time 1247 Note Patient has no new complaints today. She states she is having less pain today. Objective Findings Laboratory Tests 02/03/17 0645: Sodium 139, Potassium 3.6, Chloride 107, Carbon Dioxide 24, BUN 9, Creatinine 0.6, Estimated Creat Clear 91, Estimated GFR (MDRD) 102, Glucose 117 H, Calcium 7.7 L, WBC 13.6 H, RBC 4.05 L, Hgb 11.9 L, Hct 36.5 L, MCV 90.2, RDW 16.1, Plt Count 182, MPV 6.8 L, Gran % 88.8 H, Gran # 12.1 H, Total Counted 100, Lymphocytes % 7.8 L, Monocytes % 2.9, Eosinophils % 0.3, Basophils % 0.1, Neutrophils 86 H, Lymphocytes (Manual) 10, Lymphocytes # 1.1, Monocytes (Manual ) 4, Monocytes # 0.4, Eosinophils # 0.0, Basophils # 0.0, Platelet Estimate NORMAL, PUBS MCHC 32.6, MCH 29.4 Vital Signs Date Time Temp Pulse Resp B/P Pulse O2 O2 Flow FiO2 Ox Delivery Rate 02/03 0845 99.1 100 19 137/89 97 02/03 0600 100 137/89 97 ROOM AIR 02/03 0402 99.1 106 19 136/92 97 02/03 0310 93 ROOM AIR 02/03 0200 99 128/79 96 ROOM AIR 02/03 0000 93 126/77 97 ROOM AIR 02/02 2200 99 127/73 96 ROOM AIR 02/02 2024 99.9 103 17 136/83 96 02/02 1800 104 18 115/76 97 ROOM AIR 02/02 1600 98.5 102 18 129/78 97 ROOM AIR 02/02 1600 97.9 103 15 122/79 93 02/02 1400 98 18 124/79 97 ROOM AIR I&O Past 24 Hrs-ending at 0700 02/03 0700 Intake Total 2735 Output Total 1350 Balance 1385 Last VS-Temp:99.1 B/P:137/89 Pulse:100 Resp:19 SaO2:97 ROOM AIR Last weight lbs:126 oz:4 K.266 Method:Bed Scales Exam General appearance: alert, awake, no acute distress ENT: mucous membranes moist, NG tube in place Cardiovascular: regular rate & rhythm Extremities: no peripheral edema Assessment/Plan Problem List 1. Perforation of colon Status: Acute 2. Colostomy in place Status: Acute 3. Crohn's colitis 4. Anemia Status: Acute 5. Leukocytosis Status: Acute 6. Seizure disorder Status: Chronic 7. Tobacco abuse Status: Chronic 8. Hyperlipemia Status: Chronic 9. HTN (hypertension) Status: Chronic 10. COPD (chronic obstructive pulmonary disease) Status: Chronic 11. Malnutrition, calorie Status: Chronic 12. Fever Status: Acute 13. Underweight Status: Chronic 14. Hx of CABG Status: Chronic 15. History of CHF (congestive heart failure) Status: Chronic 16. CAD (coronary artery disease) Status: Chronic 17. Hyponatremia Status: Acute This inpt stay is expected to cross 2 MNs from start of care Yes Comments: Patient is post op day #2, s/p exploratory laparotomy with colon resection due to perforation and colostomy placement. Continue routine post op care. Will give a dose of IV Keppra today as patient has been unable to take her oral dose. Antibiotic Stewardship (2) Infxn that will respond? Yes Right drug,dose,and route? Yes More targeted antbx? No at 1251
[2017-02-04] VITALS (13 sets, daily range): BP systolic 127–149; BP diastolic 78–88
[2017-02-04 05:19] LABS: LYMPH # 1.1 K/mm3 (0.7-4.5)
[2017-02-04 05:22] LABS: HEMOGLOBIN 10.5 g/dL (12.2-16.2)
--- NOTE | 2017-02-04 08:19 | SURGEON PROGRESS NOTE ---
Subjective data Subjective data: DEYANIRA ROSARIO is a 61 F .Patient denies complaint of nausea and vomitting.She reports her last pain level as 0 on a 0-10 pain scale. Patient without complaints. Denies nausea. Assessment findings Assessment Exam General appearance: alert ABD: soft, colostomy Patient plan Plan: Antibiotics, IV fluids Additional data: Will DC NG and quintana. Continue NPO except ice chips. Antibiotic Stewardship (2) Infxn that will respond? Yes Right drug,dose,and route? Yes More targeted antbx? No at 0818
--- NOTE | 2017-02-04 08:29 | ACUTE CARE PROGRESS NOTE (QUA) ---
Progress Notes Subjective Date 02/04/17 Time 0816 Note Feels about the same. Some pain in upper abdomen. Denies nausea. No SOA. Objective Findings Laboratory Tests 02/04/17 0500: Sodium 141, Potassium 3.4 L, Chloride 107, Carbon Dioxide 25, BUN 6 L, Creatinine 0.6, Estimated Creat Clear 93, Estimated GFR (MDRD) 102, Glucose 106, Calcium 7.5 L, WBC 13.7 H, RBC 3.63 L, Hgb 10.5 L, Hct 32.6 L, MCV 89.8, RDW 16.0, Plt Count 191, MPV 7.3 L, Gran % 87.2 H, Gran # 12.0 H, Lymphocytes % 8.0 L, Monocytes % 4.4, Eosinophils % 0.2, Basophils % 0.1, Lymphocytes # 1.1 , Monocytes # 0.6, Eosinophils # 0.0, Basophils # 0.0, PUBS MCHC 32.3, MCH 29.1 Last VS-Temp:98.7 B/P:144/83 Pulse:93 Resp:14 SaO2:98 ROOM AIR Last weight lbs:128 oz:2 K.117 Method:Bed Scales Exam General appearance: drowsy but oriented Eyes: anicteric ENT: dry mucous membranes Cardiovascular: regular rate & rhythm Respiratory: clear to auscultation ABD: soft, nondistended with appropriate tenderness. Minimal bowel sounds. Small amount of brown liquid stool in colostomy. Genitourinary: catheter in place Extremities: arms are puffy. No edema in legs. TEDS in place. No calf tenderness. Assessment/Plan Problem List 1. Perforation of colon Status: Acute 2. Peritonitis 3. Colostomy in place Status: Acute 4. Crohn's colitis 5. Anemia Status: Acute 6. Leukocytosis Status: Acute 7. Seizure disorder Status: Chronic 8. Tobacco abuse Status: Chronic 9. Hyperlipemia Status: Chronic 10. HTN (hypertension) Status: Chronic 11. COPD (chronic obstructive pulmonary disease) Status: Chronic 12. Malnutrition, calorie Status: Chronic 13. Fever Status: Acute 14. Underweight Status: Chronic 15. Hx of CABG Status: Chronic 16. History of CHF (congestive heart failure) Status: Chronic 17. CAD (coronary artery disease) Status: Chronic 18. Hyponatremia Status: Acute Plan: Continue per orders. Remove Green. Consult Dr. Adam. This inpt stay is expected to cross 2 MNs from start of care Yes Antibiotic Stewardship (2) Infxn that will respond? Yes Right drug,dose,and route? Yes More targeted antbx? No at 0827
--- NOTE | 2017-02-04 14:30 | CONSULT NOTE ---
Dr. Adam' Consult History: History of Present Illness: Mrs. Barron is a 61-year-old female who had recently been diagnosed with regional colitis consistent with Crohn's disease after a colonoscopy on November 02, 2016. She did have positive Crohn's serologies with a double positive ASCA IgG and IgA antibodies. She had moderate disease identified on 2 separate examinations of the colon and she had elevated markers of inflammation was C- reactive protein 13.9 and sedimentation rate of 115. She also had iron deficiency and anemia. The patient was seen in the office but failed to get her medications to achieve remission and failed to do the corticosteroids and mesalamine. Cost was a factor and certainly compliance was a factor. Biologic therapy was considered. At one point, she stated that she was ALLERGIC to steroids and we did not have her stated phone number. Our office made numerous attempts to reach her and she eventually worsened with abdominal pain and went to her primary care physician with more severe abdominal pain. She was admitted and her CAT scan showed pneumoperitoneum. The patient had exploratory laparotomy and had takedown of splenic flexure with segmental distal transverse resection and end colostomy. The patient states that she stopped smoking but was a heavier smoker. Past Medical History: Medical History: CAD? Yes Angina: No MD: Yes Hypertension? Yes Hyperlipidemia? Yes CHF? No DVT? No PE? No COPD? Yes Asthma? Yes Anemia? Yes GERD? Yes Gastric ulcers? No GI Bleed? No Hernia? No Thyroid Problems? No Hypothyroidism? No CVA? No Seizures? Yes Diabetes? No Renal Insuffiency? No UTI? No Stones? No GB Disease: No Nephritic Syndrome? No Asplenia? No Hepatitis? No Sickle Cell Disease? No Arthritis? No Migraines? Yes Cataracts? No Glaucoma? No MRSA? No HIV? No TB? No Anxiety? Yes Depression? Yes Cancer? No More? Yes Additional hx: CDIFF ANEMIA Crohns Ischemic colitis Surgical history: Previous Surgery?Y HysterectPARTIAL CABG X 3 NECK SX FOR DISC TOE AMPUTATION LEG STENT SPINAL STIMULATOR Additional surgical history: Patient has had surgery as described above with segmental resection transverse colon and end colostomy this admission Medications: Discontinued Scripts Saccharomyces Boulardii (Florastor) 250 MG PO TID #90 CAP Ref 2 Prov: 10/04/16 DC: 01/30/17 1530 Dicyclomine Hcl (Dicyclomine Tab) 20 MG PO Q6HP PRN abdominal cramping #30 TAB Ref 2 Prov: 10/04/16 DC: 01/30/17 1530 Reported Medications Diclofenac Sodium (Diclofenac Sodium Dr) 75 MG PO BID Furosemide 20 MG PO DAILY Levetiracetam (Keppra) 250 MG PO BID BUTALBIT/ACETAMIN/CAFF/CODEINE (Jkqcay-Pbug-Wxbeljvedlf-Codein) 1 EACH PO Q6HP PRN MIGRAINES Mesalamine (Lialda) 2.4 GM PO BID Atorvastatin Calcium 40 MG PO QHS #30 TAB POTASSIUM CHL (Potassium Chloride) 10 MEQ PO QHS L Gasseri/B Bifidum/B Longum (Oration Health Capsule) 1 EACH PO DAILY Omeprazole (Omeprazole Dr) 20 MG PO DAILY Amitriptyline Hcl (Amitriptyline) 25 MG PO QHS Allergies: Coded Allergies: prednisone (02/01/17) Family History: Family history: Negative for: CAD, CAD under 40 yrs of age, DM, HTN, TIA, adopted, cancer, coagulopathy, gall bladder disease, hyperlipidemia, seizure, stroke, subarachnoid hemorrhage, sudden cardiac , unknown. Social History: Smoking Hx Tobacco: No Smoker: Former Smoker Type: Cigarettes Packs/day: 1 1/2 - 2 Packs Are you exposed to second hand No Alcohol: Alcohol: No Hx of Drug Use: Drug Use? No Patient's support system is: fair Physical Exam: Vital signs: 1ST Vital Signs Result Date Time Pulse Ox 100 01/30 1359 B/P 111/70 01/30 1359 O2 Delivery ROOM AIR 01/30 1359 Temp 100.0 01/30 1359 Pulse 100 01/30 1359 Resp 20 01/30 1359 O2 Flow Rate 2 02/01 1900 Exam: General appearance: normal appearance (thin slightly malnourished) ENT: normal exam Neck: normal inspection Cardiovascular: normal exam Respiratory: normal exam Genitourinary: normal voiding & quantity Musculoskeletal: normal exam Skin: normal exam Neuro: normal exam Lab data: Labs: Laboratory Tests 02/04/17 0500: Sodium 141, Potassium 3.4 L, Chloride 107, Carbon Dioxide 25, BUN 6 L, Creatinine 0.6, Estimated Creat Clear 93, Estimated GFR (MDRD) 102, Glucose 106, Calcium 7.5 L, WBC 13.7 H, RBC 3.63 L, Hgb 10.5 L, Hct 32.6 L, MCV 89.8, RDW 16.0, Plt Count 191, MPV 7.3 L, Gran % 87.2 H, Gran # 12.0 H, Lymphocytes % 8.0 L, Monocytes % 4.4, Eosinophils % 0.2, Basophils % 0.1, Lymphocytes # 1.1 , Monocytes # 0.6, Eosinophils # 0.0, Basophils # 0.0, PUBS MCHC 32.3, MCH 29.1 Diagnosis(es): 1. Perforation of colon Status: Acute 2. Peritonitis 3. Colostomy in place Status: Acute 4. Crohn's colitis 5. Anemia Status: Acute 6. Leukocytosis Status: Acute 7. Seizure disorder Status: Chronic 8. Tobacco abuse Status: Chronic 9. Hyperlipemia Status: Chronic 10. HTN (hypertension) Status: Chronic 11. COPD (chronic obstructive pulmonary disease) Status: Chronic 12. Malnutrition, calorie Status: Chronic 13. Fever Status: Acute 14. Underweight Status: Chronic 15. Hx of CABG Status: Chronic 16. History of CHF (congestive heart failure) Status: Chronic 17. CAD (coronary artery disease) Status: Chronic 18. Hyponatremia Status: Acute Plan: 1. Complicated Crohn's colitis with severe disease resulting in a colonic perforation spontaneously due to failure to follow through with obtaining treatment regimen or compliance with regimen. The patient is aware of this. Biologic therapy can sometimes make surgery much more complicated especially in the perioperative period and this has been shown especially with some of the newer drugs including entyvio. There is also data showing that TNF blockers can make surgery more complicated. Presently, I would favor allowing her to heal in this perioperative time and go with mesalamine and corticosteroids to achieve initial remission. She will maintain antibiotic therapy as well. I will likely have her get a second opinion based upon her failure of compliance with treatment regimen which is useful in helping to convince patient to maintain on a therapeutic regimen to prevent short and long-term complications of this disease.
[2017-02-05] VITALS (26 sets, daily range): BP systolic 116–137; BP diastolic 66–89
--- NOTE | 2017-02-05 07:06 | SURGEON PROGRESS NOTE ---
Subjective data Subjective data: DEYANIRA ROSARIO is a 61 F .Patient denies complaint of nausea and vomitting.She reports her last pain level as 0 on a 0-10 pain scale. Patient feels well without any complaints. Tolerated NG and quintana out. Assessment findings Assessment Exam General appearance: normal appearance ABD: soft, colostomy Comment: No appreciable output from colostomy. Wound clean. Patient plan Plan: Antibiotics, IV fluids Antibiotic Stewardship (2) Infxn that will respond? Yes Right drug,dose,and route? Yes More targeted antbx? No at 0706
--- NOTE | 2017-02-05 08:08 | ACUTE CARE PROGRESS NOTE (QUA) ---
Progress Notes Subjective Date 02/05/17 Time 0806 Note Pt doing well this am. Denies any pain. Fecal matter in colostomy. No vomiting. Tolerating ice chips. Objective Findings Last VS-Temp:98.6 B/P:128/79 Pulse:93 Resp:15 SaO2:96 ROOM AIR Last weight lbs:130 oz:4 K.08 Method:Bed Scales Exam General appearance: alert, awake, no acute distress Cardiovascular: regular rate & rhythm Respiratory: clear to auscultation ABD: non-distended, no rebound, soft, no guarding, colostomy in place, hypoactive BS Extremities: no peripheral edema Assessment/Plan Problem List 1. Perforation of colon Status: Acute 2. Peritonitis 3. Colostomy in place Status: Acute 4. Crohn's colitis 5. Anemia Status: Acute 6. Leukocytosis Status: Acute 7. Seizure disorder Status: Chronic 8. Tobacco abuse Status: Chronic 9. Hyperlipemia Status: Chronic 10. HTN (hypertension) Status: Chronic 11. COPD (chronic obstructive pulmonary disease) Status: Chronic 12. Malnutrition, calorie Status: Chronic 13. Fever Status: Acute 14. Underweight Status: Chronic 15. Hx of CABG Status: Chronic 16. History of CHF (congestive heart failure) Status: Chronic 17. CAD (coronary artery disease) Status: Chronic 18. Hyponatremia Status: Acute Plan: Pt improving. Surgery to continue to follow. This inpt stay is expected to cross 2 MNs from start of care Yes (Veronica Ludwig) Subjective Date 02/05/17 Time 0851 Assessment/Plan Problem List 1. Perforation of colon Status: Acute 2. Peritonitis 3. Colostomy in place Status: Acute 4. Crohn's colitis 5. Anemia Status: Acute 6. Leukocytosis Status: Acute 7. Seizure disorder Status: Chronic 8. Tobacco abuse Status: Chronic 9. Hyperlipemia Status: Chronic 10. HTN (hypertension) Status: Chronic 11. COPD (chronic obstructive pulmonary disease) Status: Chronic 12. Malnutrition, calorie Status: Chronic 13. Fever Status: Acute 14. Underweight Status: Chronic 15. Hx of CABG Status: Chronic 16. History of CHF (congestive heart failure) Status: Chronic 17. CAD (coronary artery disease) Status: Chronic 18. Hyponatremia Status: Acute Plan: Pt seen and examined. She is more alert and denies pain. Has not been very mobile. SHe is encouraged to get up in chair today. Diet advancement per surgery recommendations. Dr. Adam consult noted and appreciated. (Rashid BLOUNT,Isabelle Paz) Antibiotic Stewardship (2) Infxn that will respond? Yes Right drug,dose,and route? Yes More targeted antbx? No (Veronica Ludwig) at 0829 at 0891
[2017-02-06] VITALS (19 sets, daily range): BP systolic 127–145; BP diastolic 72–92
[2017-02-06 06:17] LABS: HEMOGLOBIN 10.7 g/dL (12.2-16.2); LYMPH # 1.2 K/mm3 (0.7-4.5); LYMPH % 10.9 % (10-50.0)
--- NOTE | 2017-02-06 08:29 | ACUTE CARE PROGRESS NOTE (QUA) ---
Progress Notes Subjective Date 02/06/17 Time 0815 Note Patient resting in bed this morning, and states she is feeling better with less pain. She has been eating ice chips and has had increased stool through colostomy appliance. Objective Findings Last VS-Temp:98.9 B/P:139/72 Pulse:99 Resp:26 SaO2:97 ROOM AIR Last weight lbs:132 oz:6 K.044 Method:Bed Scales Laboratory Tests 02/06/17 0600: Sodium 141, Potassium 2.9 *L, Chloride 108 H, Carbon Dioxide 28, BUN 4 L, Creatinine 0.6, Estimated Creat Clear 94, Estimated GFR (MDRD) 102, Glucose 111 H, Calcium 7.3 L, WBC 10.7, RBC 3.76 L, Hgb 10.7 L, Hct 34.6 L, MCV 91.8, RDW 15.5, Plt Count 226, MPV 7.2 L, Gran % 82.3 H, Gran # 8.8 H, Lymphocytes % 10.9, Monocytes % 6.0, Eosinophils % 0.7, Basophils % 0.1, Lymphocytes # 1.2, Monocytes # 0.6, Eosinophils # 0.1, Basophils # 0.0, PUBS MCHC 30.9 L, MCH 28.4 Exam General appearance: alert, awake Cardiovascular: normal sinus rhythm, regular rate & rhythm Respiratory: clear to auscultation ABD: soft, no guarding, colostomy, Stoma is red and moist. Increased output in colostomy appliance Extremities: no peripheral edema Assessment/Plan Problem List 1. Perforation of colon Status: Acute 2. Peritonitis 3. Colostomy in place Status: Acute 4. Crohn's colitis 5. Anemia Status: Acute 6. Leukocytosis Status: Acute 7. Seizure disorder Status: Chronic 8. Tobacco abuse Status: Chronic 9. Hyperlipemia Status: Chronic 10. HTN (hypertension) Status: Chronic 11. COPD (chronic obstructive pulmonary disease) Status: Chronic 12. Malnutrition, calorie Status: Chronic 13. Fever Status: Acute 14. Underweight Status: Chronic 15. Hx of CABG Status: Chronic 16. History of CHF (congestive heart failure) Status: Chronic 17. CAD (coronary artery disease) Status: Chronic 18. Hyponatremia Status: Acute 19. Hypokalemia Status: Acute Plan: Surgery to follow. Will give 2 runs of potassium d/t hypokalemia today. This inpt stay is expected to cross 2 MNs from start of care Yes (Veronica Ludwig) Subjective Date 02/06/17 Time 0855 Assessment/Plan Problem List 1. Perforation of colon Status: Acute 2. Peritonitis 3. Colostomy in place Status: Acute 4. Crohn's colitis 5. Anemia Status: Acute 6. Leukocytosis Status: Acute 7. Seizure disorder Status: Chronic 8. Tobacco abuse Status: Chronic 9. Hyperlipemia Status: Chronic 10. HTN (hypertension) Status: Chronic 11. COPD (chronic obstructive pulmonary disease) Status: Chronic 12. Malnutrition, calorie Status: Chronic 13. Fever Status: Acute 14. Underweight Status: Chronic 15. Hx of CABG Status: Chronic 16. History of CHF (congestive heart failure) Status: Chronic 17. CAD (coronary artery disease) Status: Chronic 18. Hyponatremia Status: Acute 19. Hypokalemia Status: Acute Plan: Concur with above. SHe is more alert this AM. Has still been sleeping a lot. Did get up in chair for short time yesterday. Appears to have more stool in colostomy bag this morning. Feels a little hungry. Still with swelling in BUE and some in upper legs. (Isabelle Mike MD) Antibiotic Stewardship (2) Infxn that will respond? Yes Right drug,dose,and route? Yes More targeted antbx? No (Veronica Ludwig) at 0828 at 0858
--- NOTE | 2017-02-06 13:09 | SURGEON PROGRESS NOTE ---
Subjective data Subjective data: DEYANIRA ROSARIO is a 61 F .Patient denies complaint of nausea and vomitting.She reports her last pain level as 0 on a 0-10 pain scale. Patient without significant complaints. No nausea. Has been working somewhat physical therapy. Sleeping quite a lot. Assessment findings Assessment Exam ABD: soft, colostomy Comment: Minimal output still from colostomy. Wound is clean. Some erythema adjacent to colostomy. Patient plan Plan: IV fluids Additional data: Continue to limit to ice chips for now due to minimal output from colostomy. Did digitally probe colostomy hopefully to stimulate. Continue wound care with dressings. Continue physical therapy. Plan to discontinue TOOTH CLERK and start oral pain medication. Antibiotic Stewardship (2) Infxn that will respond? Yes Right drug,dose,and route? Yes More targeted antbx? No at 1307
--- NOTE | 2017-02-06 13:09 | SURGEON PROGRESS NOTE ---
Subjective data Subjective data: DEYANIRA ROSARIO is a 61 F .Patient denies complaint of nausea and vomitting.She reports her last pain level as 0 on a 0-10 pain scale. Patient without significant complaints. No nausea. Has been working somewhat physical therapy. Sleeping quite a lot. Assessment findings Assessment Exam ABD: soft, colostomy Comment: Minimal output still from colostomy. Wound is clean. Some erythema adjacent to colostomy. Patient plan Plan: IV fluids Additional data: Continue to limit to ice chips for now due to minimal output from colostomy. Did digitally probe colostomy hopefully to stimulate. Continue wound care with dressings. Continue physical therapy. 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 Antibiotic Stewardship (2) Infxn that will respond? Yes Right drug,dose,and route? Yes More targeted antbx? No at 1308
[2017-02-07 03:53] VITALS: BP 139/77
[2017-02-07 06:01] LABS: HEMOGLOBIN 10.1 g/dL (12.2-16.2); LYMPH # 0.9 K/mm3 (0.7-4.5); LYMPH % 8.4 % (10-50.0)
[2017-02-07 08:00] VITALS: BP 130/80
--- NOTE | 2017-02-07 08:18 | SURGEON PROGRESS NOTE ---
Subjective data Subjective data: DEYANIRA ROSARIO is a 61 F .Patient denies complaint of nausea and vomitting.She reports her last pain level as 0 on a 0-10 pain scale. Patient without significant complaints. Some minimal nausea. Assessment findings Assessment Exam General appearance: normal appearance, alert ABD: soft, colostomy Patient plan Plan: Advance diet Antibiotic Stewardship (2) Infxn that will respond? Yes Right drug,dose,and route? Yes More targeted antbx? No at 0818
--- NOTE | 2017-02-07 08:21 | ACUTE CARE PROGRESS NOTE (QUA) ---
Progress Notes Subjective Date 02/07/17 Time 0817 Note Pt states she is a little nauseated today. She is having some abdominal cramping. She denies any pain. She rested well. Objective Findings Last VS-Temp:98.1 B/P:139/77 Pulse:99 Resp:18 SaO2:98 ROOM AIR Last weight lbs:135 oz:0 K.235 Method:Bed Scales Laboratory Tests 02/07/17 0525: Sodium 141, Potassium 3.1 L, Chloride 107, Carbon Dioxide 29, BUN 4 L, Creatinine 0.6, Estimated Creat Clear 98, Estimated GFR (MDRD) 102, Glucose 92, Calcium 7.4 L, WBC 11.0 H, RBC 3.60 L, Hgb 10.1 L, Hct 33.2 L, MCV 92.0, RDW 15.5, Plt Count 276, MPV 7.4, Gran % 84.0 H, Gran # 9.2 H, Lymphocytes % 8.4 L, Monocytes % 7.2, Eosinophils % 0.3, Basophils % 0.1, Lymphocytes # 0.9, Monocytes # 0.8, Eosinophils # 0.0, Basophils # 0.0, PUBS MCHC 30.4 L, MCH 27.9 Exam General appearance: alert, awake, no acute distress Cardiovascular: regular rate & rhythm Respiratory: clear to auscultation ABD: non-distended, normal bowel sounds, no rebound, soft, no guarding, ttp in the epigastric area Extremities: no peripheral edema Assessment/Plan Problem List 1. Perforation of colon Status: Acute 2. Peritonitis 3. Colostomy in place Status: Acute 4. Crohn's colitis 5. Anemia Status: Acute 6. Leukocytosis Status: Acute 7. Seizure disorder Status: Chronic 8. Tobacco abuse Status: Chronic 9. Hyperlipemia Status: Chronic 10. HTN (hypertension) Status: Chronic 11. COPD (chronic obstructive pulmonary disease) Status: Chronic 12. Malnutrition, calorie Status: Chronic 13. Fever Status: Acute 14. Underweight Status: Chronic 15. Hx of CABG Status: Chronic 16. History of CHF (congestive heart failure) Status: Chronic 17. CAD (coronary artery disease) Status: Chronic 18. Hyponatremia Status: Acute 19. Hypokalemia Status: Acute Plan: Surgery to follow. Will give another run of potassium today. Will advance to a clear liquid diet. This inpt stay is expected to cross 2 MNs from start of care Yes (Veronica Ludwig) Subjective Date 02/07/17 Time 0824 Assessment/Plan Problem List 1. Perforation of colon Status: Acute 2. Peritonitis 3. Colostomy in place Status: Acute 4. Crohn's colitis 5. Anemia Status: Acute 6. Leukocytosis Status: Acute 7. Seizure disorder Status: Chronic 8. Tobacco abuse Status: Chronic 9. Hyperlipemia Status: Chronic 10. HTN (hypertension) Status: Chronic 11. COPD (chronic obstructive pulmonary disease) Status: Chronic 12. Malnutrition, calorie Status: Chronic 13. Fever Status: Acute 14. Underweight Status: Chronic 15. Hx of CABG Status: Chronic 16. History of CHF (congestive heart failure) Status: Chronic 17. CAD (coronary artery disease) Status: Chronic 18. Hyponatremia Status: Acute 19. Hypokalemia Status: Acute Plan: Concur with above. More alert and has been more mobile getting up to chair and BSC. (Isabelle Mike MD) Antibiotic Stewardship (2) Infxn that will respond? Yes Right drug,dose,and route? Yes More targeted antbx? No (Veronica Ludwig) at 0820 at 0825
[2017-02-07 11:45] VITALS: BP 125/79
[2017-02-07 13:48] LABS: BILIRUBIN, INDIRECT 0.22 mg/dL (0-0.9)
[2017-02-07 16:19] VITALS: BP 130/78
[2017-02-07 21:02] VITALS: BP 131/73
[2017-02-07 21:09] VITALS: BP 131/73
[2017-02-08 03:59] VITALS: BP 136/78
[2017-02-08 07:22] VITALS: BP 122/71
[2017-02-08 07:57] VITALS: BP 122/71
--- NOTE | 2017-02-08 08:17 | SURGEON PROGRESS NOTE ---
Subjective data Subjective data: DEYANIRA ROSARIO is a 61 F .Patient denies complaint of nausea and vomitting.She reports her last pain level as 0 on a 0-10 pain scale. Patient without significant complaints. Just minimal nausea. Assessment findings Assessment Exam General appearance: normal appearance, alert ABD: colostomy, distended Patient plan Plan: Antibiotics, IV fluids Antibiotic Stewardship (2) Infxn that will respond? Yes Right drug,dose,and route? Yes More targeted antbx? No at 0816
--- NOTE | 2017-02-08 08:31 | ACUTE CARE PROGRESS NOTE (QUA) ---
Progress Notes Subjective Date 02/08/17 Time 0829 Note Patient states she is feeling better today. She has been tolerating clear liquids and has had good output in her ostomy bag. She is complaining of her arms and legs swelling in her fluids and discontinued until Dr. Mike can see her. Objective Findings Last VS-Temp:97.9 B/P:122/71 Pulse:90 Resp:20 SaO2:93 ROOM AIR Last weight lbs:132 oz:9 K.129 Method:Bed Scales Exam General appearance: alert, awake, no acute distress Cardiovascular: regular rate & rhythm Respiratory: clear to auscultation ABD: non-distended, soft, no guarding, ostomy in place with good output, decreased BS Extremities: edema of bilateral arms and legs Assessment/Plan Problem List 1. Perforation of colon Status: Acute 2. Peritonitis 3. Colostomy in place Status: Acute 4. Crohn's colitis 5. Anemia Status: Acute 6. Leukocytosis Status: Acute 7. Seizure disorder Status: Chronic 8. Tobacco abuse Status: Chronic 9. Hyperlipemia Status: Chronic 10. HTN (hypertension) Status: Chronic 11. COPD (chronic obstructive pulmonary disease) Status: Chronic 12. Malnutrition, calorie Status: Chronic 13. Fever Status: Acute 14. Underweight Status: Chronic 15. Hx of CABG Status: Chronic 16. History of CHF (congestive heart failure) Status: Chronic 17. CAD (coronary artery disease) Status: Chronic 18. Hyponatremia Status: Acute 19. Hypokalemia Status: Acute Plan: Surgery to follow. Will discuss edema with Dr. Mike. This inpt stay is expected to cross 2 MNs from start of care Yes (Veronica Ludwig) Subjective Date 02/08/17 Time 0900 Assessment/Plan Problem List 1. Perforation of colon Status: Acute 2. Peritonitis 3. Colostomy in place Status: Acute 4. Crohn's colitis 5. Anemia Status: Acute 6. Leukocytosis Status: Acute 7. Seizure disorder Status: Chronic 8. Tobacco abuse Status: Chronic 9. Hyperlipemia Status: Chronic 10. HTN (hypertension) Status: Chronic 11. COPD (chronic obstructive pulmonary disease) Status: Chronic 12. Malnutrition, calorie Status: Chronic 13. Fever Status: Acute 14. Underweight Status: Chronic 15. Hx of CABG Status: Chronic 16. History of CHF (congestive heart failure) Status: Chronic 17. CAD (coronary artery disease) Status: Chronic 18. Hyponatremia Status: Acute 19. Hypokalemia Status: Acute Plan: PT seen and examined. Noted with more edema. Will decrease IVF and try dose of Lasix but edema is primarily due to 3rd spacing fluid. Encourage OOB and increased activity. (Isabelle Mike MD) Antibiotic Stewardship (2) Infxn that will respond? Yes Right drug,dose,and route? Yes More targeted antbx? No (Veronica Ludwig) at 0830 at 1318
[2017-02-08 15:48] VITALS: BP 132/72
[2017-02-08 19:56] VITALS: BP 119/88
[2017-02-08 21:25] VITALS: BP 119/88
[2017-02-09 04:52] VITALS: BP 129/73
[2017-02-09 07:41] VITALS: BP 123/73
--- NOTE | 2017-02-09 09:41 | ACUTE CARE PROGRESS NOTE (QUA) ---
Progress Notes Subjective Date 02/09/17 Time 0936 Note Sitting up in chair this AM. Rested well. No new complaints. Tolerating full liquids but does get some occasional nausea. No vomiting. Objective Findings Last VS-Temp:98.2 B/P:123/73 Pulse:100 Resp:20 SaO2:92 ROOM AIR Last weight lbs:131 oz:6 K.591 Method:Bed Scales Exam General appearance: alert, no acute distress ENT: mucous membranes moist Cardiovascular: regular rate & rhythm Respiratory: generally diminished BS but clear ABD: soft, slightly distended with appropriate tenderness Extremities: edema of arms and legs appears a little better. Reviewed: medications, vital signs, nursing notes Assessment/Plan Problem List 1. Perforation of colon Status: Acute 2. Peritonitis 3. Colostomy in place Status: Acute 4. Crohn's colitis 5. Anemia Status: Acute 6. Leukocytosis Status: Acute 7. Seizure disorder Status: Chronic 8. Tobacco abuse Status: Chronic 9. Hyperlipemia Status: Chronic 10. HTN (hypertension) Status: Chronic 11. COPD (chronic obstructive pulmonary disease) Status: Chronic 12. Malnutrition, calorie Status: Chronic 13. Fever Status: Acute 14. Underweight Status: Chronic 15. Hx of CABG Status: Chronic 16. History of CHF (congestive heart failure) Status: Chronic 17. CAD (coronary artery disease) Status: Chronic 18. Hyponatremia Status: Acute 19. Hypokalemia Status: Acute Plan: Continue per orders. F/u labs in AM. This inpt stay is expected to cross 2 MNs from start of care Yes Antibiotic Stewardship (2) Infxn that will respond? Yes Right drug,dose,and route? Yes More targeted antbx? No at 0940
--- NOTE | 2017-02-09 10:20 | POST-OP PROGRESS NOTE ---
Post Op Subjective Data Patient is post-op day 8 Subjective data: Feels "pretty good". Some mild nausea yesterday..."better right now". Post op objective data Vitals,I&O,and Labs: Vital signs, intake and output,and available lab data for the last 24 hours is as noted below. Vital Signs Date Time Temp Pulse Resp B/P Pulse O2 O2 Flow FiO2 Ox Delivery Rate 02/09 0834 98.2 100 20 123/73 92 02/09 0831 20 02/09 0741 98.2 100 20 123/73 92 ROOM AIR 02/09 0452 98.7 95 20 129/73 91 ROOM AIR 02/08 2125 98.6 92 20 119/88 93 02/08 1956 98.6 92 20 119/88 93 ROOM AIR 02/08 1548 98.1 85 20 132/72 95 ROOM AIR 02/08 1333 20 02/08 1500 02/08 2300 02/09 0700 Intake Total 720 480 Output Total 3000 Balance -2280 480 Intake, Oral 720 480 Output, Urine 3000 Patient 59.591 kg Weight Laboratory Tests Test Result Date Time Chemistry Sodium (mmoL/L) 138 02/08 0910 Potassium (mmoL/L) 3.3 02/08 0910 Chloride (mmoL/L) 106 02/08 0910 Carbon Dioxide (mmoL/L) 25 02/08 0910 BUN (mg/dL) 4 02/08 0910 Creatinine (mg/dL) 0.5 02/08 0910 Estimated Creat Clear (ML/MIN) 115 02/08 0910 Estimated GFR (MDRD) (ML/MIN) 126 02/08 0910 Glucose (mg/dL) 86 02/08 0910 Calcium (mg/dL) 7.2 02/08 0910 Iron (send out) (ug/dL) 17 01/30 1350 TIBC (ug/dL) 233 01/30 1350 % Saturation (%) 7 01/30 1350 Unsaturated IBC (ug/dL) 216 01/30 1350 Ferritin (ng/mL) 91 01/30 1350 Total Bilirubin (mg/dL) 0.5 02/07 0525 Direct Bilirubin (mg/dL) 0.28 02/07 0525 Indirect Bilirubin (mg/dL) 0.22 02/07 0525 AST (U/L) 63 02/07 0525 ALT (U/L) 41 02/07 0525 Alkaline Phosphatase (U/L) 123 02/07 0525 Total Protein (gm/dL) 4.0 02/07 0525 Albumin (gm/dL) 0.8 02/07 0525 Globulin (gm/dL) 2.9 02/02 0550 Albumin/Globulin Ratio 0.3 02/02 0550 Prealbumin (mg/dL) 4 02/07 0525 Amylase (U/L) 50 01/31 08 Lipase (U/L) 27 01/31 0807 Hematology WBC (K/MM3) 11.0 02/07 0525 RBC (M/mm3) 3.60 02/07 0525 Hgb (g/dL) 10.1 02/07 0525 Hct (%) 33.2 02/07 0525 MCV (fl) 92.0 02/07 0525 RDW (%) 15.5 02/07 0525 Plt Count (K/mm3) 276 02/07 0525 MPV (fl) 7.4 02/07 0525 Gran % (%) 84.0 02/07 0525 Gran # (K/mm3) 9.2 02/07 0525 Total Counted (#CELLS) 100 02/03 0645 Lymphocytes % (%) 8.4 02/07 0525 Monocytes % (%) 7.2 02/07 0525 Eosinophils % (%) 0.3 02/07 0525 Basophils % (%) 0.1 02/07 0525 Neutrophils (%) 86 02/03 0645 Band Neutrophils (%) 30 02/02 0550 Lymphocytes (Manual) (%) 10 02/03 0645 Lymphocytes # (K/mm3) 0.9 02/07 0525 Monocytes (Manual) (%) 4 02/03 0645 Monocytes # (K/mm3) 0.8 02/07 0525 Eosinophils # (K/mm3) 0.0 02/07 0525 Basophils # (K/MM3) 0.0 02/07 0525 Metamyelocytes (%) 2 02/02 0550 RBC/WBC/PLT Morphology NORMAL 01/31 08 Atypical Lymphocytes (%) 3 02/02 0550 Platelet Estimate NORMAL 02/03 0645 Poikilocytosis 1+ 02/02 0550 Anisocytosis 1+ 02/02 0550 Macrocytosis 1+ 02/02 0550 PUBS MCHC (g/dl) 30.4 02/07 0525 Immunology Antibody Screen NEGATIVE 01/30 1350 MCH (pg) 27.9 02/07 0525 Miscellaneous Miscellaneous Test NEGATIVE 01/30 135 Misc Test Units BLOOD UNIT RELEASE 01/31 0505 Toxicology Levetiracetam (ug/mL) 4.4 02/04 0500 Urines Urine Color DK YELLOW 02/01 152 Urine Appearance CLEAR 02/01 152 Urine pH 6.5 02/01 152 Ur Specific [place] 1.015 02/01 1520 Urine Protein (mg/dL) TRACE 02/01 152 Urine Ketones (mg/dL) NEGATIVE 02/01 152 Urine Blood NEGATIVE 02/01 152 Urine Nitrate POSITIVE 02/01 152 Urine Bilirubin NEGATIVE 02/01 152 Urine Urobilinogen (E.U./dL) 0.2 02/01 152 Ur Leukocyte Esterase NEGATIVE 02/01 152 Urine RBC (rbc/hpf) OCC 01/30 UNK Urine WBC (wbc/hpf) 3-5 02/01 1520 Ur Squamous Epith Cells (#/hpf) 5-10 02/01 0600 Urine Bacteria 2+ 02/01 0600 Hyaline Casts (#/lpf) OCC 01/30 UNK Urine Mucus OCC 02/01 0600 Urine Glucose NEGATIVE 02/01 1520 Physical Exam VS/I&O Vital Signs Date Time Temp Pulse Resp B/P Pulse O2 O2 Flow FiO2 Ox Delivery Rate 02/09 0834 98.2 100 20 123/73 92 02/09 0831 20 02/09 0741 98.2 100 20 123/73 92 ROOM AIR 02/09 0452 98.7 95 20 129/73 91 ROOM AIR 02/08 2125 98.6 92 20 119/88 93 02/08 1956 98.6 92 20 119/88 93 ROOM AIR 02/08 1548 98.1 85 20 132/72 95 ROOM AIR 02/08 1333 20 I&O 02/09 0700 Intake Total 1200 Output Total 3000 Balance -1800 Intake, Oral 1200 Output, Urine 3000 Patient 59.591 kg Weight Exam General appearance no acute distress Respiratory no distress Cardiovascular regular rate and rhythm Abdomen soft (ostomy viable/wounds clean) Post op patient plan Diagnoses: post-op ileus - resolving...good ostomy output...nausea minimal...no emesis deconditioning Plan: stay on fulls for now, continue PT, increase IS use This inpt stay is expected to cross 2 MNs from start of care Yes Antibiotic Stewardship (2) Infxn that will respond? Yes Right drug,dose,and route? Yes More targeted antbx? No at 1020
[2017-02-09 15:57] VITALS: BP 129/74
[2017-02-09 19:27] VITALS: BP 134/77
[2017-02-09 20:00] VITALS: BP 134/77
[2017-02-10 03:57] VITALS: BP 133/67
[2017-02-10 07:40] VITALS: BP 131/74
--- NOTE | 2017-02-10 08:35 | POST-OP PROGRESS NOTE ---
Post Op Subjective Data Patient is post-op day 9 Subjective data: Feels "a bit better". No nausea at this time. Post op objective data Vitals,I&O,and Labs: Vital signs, intake and output,and available lab data for the last 24 hours is as noted below. Vital Signs Date Time Temp Pulse Resp B/P Pulse O2 O2 Flow FiO2 Ox Delivery Rate 02/10 0740 98.3 64 20 131/74 93 ROOM AIR 02/10 0357 98.4 84 20 133/67 90 ROOM AIR 02/10 0306 20 02/09 2000 98.5 95 20 134/77 93 02/09 1927 98.5 95 20 134/77 93 ROOM AIR 02/09 1557 98.4 99 20 129/74 94 ROOM AIR 02/09 1500 02/09 2300 02/10 0700 Intake Total 10 Output Total Balance 10 Intake, IV 10 Output, Stool Laboratory Tests Test Result Date Time Chemistry Sodium (mmoL/L) 138 02/10 0620 Potassium (mmoL/L) 2.5 02/10 0620 Chloride (mmoL/L) 107 02/10 0620 Carbon Dioxide (mmoL/L) 27 02/10 0620 BUN (mg/dL) 3 02/10 0620 Creatinine (mg/dL) 0.5 02/10 06 Estimated Creat Clear (ML/MIN) 114 02/10 0620 Estimated GFR (MDRD) (ML/MIN) 126 02/10 0620 Glucose (mg/dL) 91 02/10 0620 Calcium (mg/dL) 7.1 02/10 0620 Iron (send out) (ug/dL) 17 01/30 1350 TIBC (ug/dL) 233 01/30 1350 % Saturation (%) 7 01/30 1350 Unsaturated IBC (ug/dL) 216 01/30 1350 Ferritin (ng/mL) 91 01/30 1350 Total Bilirubin (mg/dL) 0.3 02/10 0620 Direct Bilirubin (mg/dL) 0.28 02/07 0525 Indirect Bilirubin (mg/dL) 0.22 02/07 0525 AST (U/L) 33 02/10 0620 ALT (U/L) 28 02/10 0620 Alkaline Phosphatase (U/L) 108 02/10 0620 Total Protein (gm/dL) 4.4 02/10 0620 Albumin (gm/dL) 0.8 02/10 0620 Globulin (gm/dL) 3.6 02/10 06 Albumin/Globulin Ratio 0.2 02/10 06 Prealbumin (mg/dL) 4 02/07 0525 Amylase (U/L) 50 01/31 0807 Lipase (U/L) 27 01/31 08 Hematology WBC (K/MM3) 11.0 02/07 0525 RBC (M/mm3) 3.60 02/07 0525 Hgb (g/dL) 10.1 02/07 0525 Hct (%) 33.2 02/07 0525 MCV (fl) 92.0 02/07 0525 RDW (%) 15.5 02/07 0525 Plt Count (K/mm3) 276 02/07 0525 MPV (fl) 7.4 02/07 0525 Gran % (%) 84.0 02/07 0525 Gran # (K/mm3) 9.2 02/07 0525 Total Counted (#CELLS) 100 02/03 0645 Lymphocytes % (%) 8.4 02/07 0525 Monocytes % (%) 7.2 02/07 0525 Eosinophils % (%) 0.3 02/07 0525 Basophils % (%) 0.1 02/07 0525 Neutrophils (%) 86 02/03 0645 Band Neutrophils (%) 30 02/02 0550 Lymphocytes (Manual) (%) 10 02/03 0645 Lymphocytes # (K/mm3) 0.9 02/07 0525 Monocytes (Manual) (%) 4 02/03 0645 Monocytes # (K/mm3) 0.8 02/07 0525 Eosinophils # (K/mm3) 0.0 02/07 0525 Basophils # (K/MM3) 0.0 02/07 0525 Metamyelocytes (%) 2 02/02 0550 RBC/WBC/PLT Morphology NORMAL 01/31 0807 Atypical Lymphocytes (%) 3 02/02 0550 Platelet Estimate NORMAL 02/03 0645 Poikilocytosis 1+ 02/02 0550 Anisocytosis 1+ 02/02 0550 Macrocytosis 1+ 02/02 0550 PUBS MCHC (g/dl) 30.4 02/07 0525 Immunology Antibody Screen NEGATIVE 01/30 1350 MCH (pg) 27.9 02/07 0525 Miscellaneous Miscellaneous Test NEGATIVE 01/30 1350 Misc Test Units BLOOD UNIT RELEASE 01/31 0505 Toxicology Levetiracetam (ug/mL) 4.4 02/04 0500 Urines Urine Color DK YELLOW 02/01 1520 Urine Appearance CLEAR 02/01 1520 Urine pH 6.5 02/01 1520 Ur Specific [place] 1.015 02/01 152 Urine Protein (mg/dL) TRACE 02/01 152 Urine Ketones (mg/dL) NEGATIVE 02/01 152 Urine Blood NEGATIVE 02/01 152 Urine Nitrate POSITIVE 02/01 152 Urine Bilirubin NEGATIVE 02/01 152 Urine Urobilinogen (E.U./dL) 0.2 02/01 152 Ur Leukocyte Esterase NEGATIVE 02/01 152 Urine RBC (rbc/hpf) OCC 01/30 UNK Urine WBC (wbc/hpf) 3-5 02/01 152 Ur Squamous Epith Cells (#/hpf) 5-10 02/01 0600 Urine Bacteria 2+ 02/01 0600 Hyaline Casts (#/lpf) OCC 01/30 UNK Urine Mucus OCC 02/01 0600 Urine Glucose NEGATIVE 02/01 1520 Physical Exam VS/I&O Vital Signs Date Time Temp Pulse Resp B/P Pulse O2 O2 Flow FiO2 Ox Delivery Rate 02/10 0740 98.3 64 20 131/74 93 ROOM AIR 02/10 0357 98.4 84 20 133/67 90 ROOM AIR 02/10 0306 20 02/09 2000 98.5 95 20 134/77 93 02/09 1927 98.5 95 20 134/77 93 ROOM AIR 02/09 1557 98.4 99 20 129/74 94 ROOM AIR I&O 02/10 0700 Intake Total 10 Output Total Balance 10 Intake, IV 10 Output, Stool Exam General appearance no acute distress Respiratory no distress Cardiovascular regular rate and rhythm Abdomen soft ((see below)) Findings/Data Evaluation of the incision/wounds reveal no erythema. The ostomy appliance has been placed over her wound dressings and there has been some states seepage of stool into her wounds and into the "incisional area". All dressings and ostomy appliance of been removed and replaced. Post op patient plan Diagnoses: Hypokalemia-being replaced Postoperative ileus-resolving Plan: Ambulate, soft diet this evening if she continues to improve This inpt stay is expected to cross 2 MNs from start of care Yes Antibiotic Stewardship (2) Infxn that will respond? Yes Right drug,dose,and route? Yes More targeted antbx? No at 0958
--- NOTE | 2017-02-10 08:48 | ACUTE CARE PROGRESS NOTE (QUA) ---
Progress Notes Subjective Date 02/10/17 Time 0842 Note Tolerating full liquid diet. Less nausea and bloating. No pain. Objective Findings Laboratory Tests 02/10/17 0620: Sodium 138, Potassium 2.5 *L, Chloride 107, Carbon Dioxide 27, BUN 3 L, Creatinine 0.5 L, Estimated Creat Clear 114, Estimated GFR (MDRD) 126, Glucose 91, Calcium 7.1 L, Total Bilirubin 0.3, AST 33, ALT 28, Alkaline Phosphatase 108, Total Protein 4.4 L, Albumin 0.8 L, Globulin 3.6 H, Albumin/Globulin Ratio 0.2 L Last VS-Temp:98.3 B/P:131/74 Pulse:64 Resp:20 SaO2:93 ROOM AIR Last weight lbs:131 oz:6 K.591 Method:Bed Scales Exam General appearance: alert, no acute distress ENT: mucous membranes moist Cardiovascular: regular rate & rhythm Respiratory: clear anteriorly ABD: non-distended, soft, faint BS Extremities: edema improved Neuro: alert, no confusion noted Reviewed: medications, vital signs, lab results, nursing notes Assessment/Plan Problem List 1. Perforation of colon Status: Acute 2. Peritonitis 3. Colostomy in place Status: Acute 4. Crohn's colitis 5. Anemia Status: Acute 6. Seizure disorder Status: Chronic 7. Tobacco abuse Status: Chronic 8. Hyperlipemia Status: Chronic 9. HTN (hypertension) Status: Chronic 10. COPD (chronic obstructive pulmonary disease) Status: Chronic 11. Malnutrition, calorie Status: Chronic 12. Hx of CABG Status: Chronic 13. History of CHF (congestive heart failure) Status: Chronic 14. CAD (coronary artery disease) Status: Chronic 15. Hypokalemia Status: Acute Plan: Continues to make slow steady progress. Will replace K+ orally. Encouraged OOB and increased activity. This inpt stay is expected to cross 2 MNs from start of care Yes Antibiotic Stewardship (2) Infxn that will respond? Yes Right drug,dose,and route? Yes More targeted antbx? No at 0848
[2017-02-10 15:38] VITALS: BP 142/70
[2017-02-10 19:28] VITALS: BP 141/81
[2017-02-10 20:30] VITALS: BP 141/81
[2017-02-11 04:20] VITALS: BP 133/72
[2017-02-11 08:10] VITALS: BP 146/83
--- NOTE | 2017-02-11 08:22 | SURGEON PROGRESS NOTE ---
Subjective data Subjective data: DEYANIRA ROSARIO is a 61 F .Patient denies complaint of nausea and vomitting.She reports her last pain level as 0 on a 0-10 pain scale. Patient taking some soft diet. Complains of occassional nausea without vomiting. Liquid colostomy output. Assessment findings Assessment Exam General appearance: normal appearance, alert ABD: soft, colostomy Patient plan Plan: IV fluids Additional data: Continue progressive management. Antibiotic Stewardship (2) Infxn that will respond? Yes Right drug,dose,and route? Yes More targeted antbx? No at 0822
--- NOTE | 2017-02-11 08:35 | ACUTE CARE PROGRESS NOTE (QUA) ---
Progress Notes Subjective Date 02/11/17 Time 0830 Note states slept almost all day yesterday and did not eat much. Pt states she gets nauseated when she tries to eat. Vomited x 1 this AM after breakfast. Minimal cramping. Objective Findings Laboratory Tests 02/11/17 0620: Sodium 138, Potassium 2.8 *L, Chloride 108 H, Carbon Dioxide 27, BUN 2 L, Creatinine 0.6, Estimated Creat Clear 93, Estimated GFR (MDRD) 102, Glucose 89, Calcium 7.1 L Last VS-Temp:97.9 B/P:146/83 Pulse:99 Resp:16 SaO2:90 ROOM AIR Last weight lbs:129 oz:2 K.57 Method:Bed Scales Exam General appearance: alert Cardiovascular: regular rate & rhythm Respiratory: clear to auscultation ABD: non-distended, soft, hyperactive bowel sounds, mild diffuse tenderness. Extremities: edema improving Assessment/Plan Problem List 1. Perforation of colon Status: Acute 2. Peritonitis 3. Colostomy in place Status: Acute 4. Crohn's colitis 5. Anemia Status: Acute 6. Seizure disorder Status: Chronic 7. Tobacco abuse Status: Chronic 8. Hyperlipemia Status: Chronic 9. HTN (hypertension) Status: Chronic 10. COPD (chronic obstructive pulmonary disease) Status: Chronic 11. Malnutrition, calorie Status: Chronic 12. Hx of CABG Status: Chronic 13. History of CHF (congestive heart failure) Status: Chronic 14. CAD (coronary artery disease) Status: Chronic 15. Hypokalemia Status: Acute Plan: Consider swing bed for further rehab. GI consult f/u for recommendations on nausea, vomiting and Crohn's. Replace K+ This inpt stay is expected to cross 2 MNs from start of care Yes Antibiotic Stewardship (2) Infxn that will respond? Yes Right drug,dose,and route? Yes More targeted antbx? No at 0834
[2017-02-11 08:49] VITALS: BP 146/83
[2017-02-11 15:53] VITALS: BP 146/71
--- NOTE | 2017-02-11 16:06 | CONSULT NOTE ---
Consult Note Note: Mrs. Reynoso is a 61-year-old female with Crohn's colitis and spontaneous perforation with soiled abdomen and peritonitis status post diverting ileostomy. The patient now has feeding difficulty and fairly significant protein calorie malnutrition. This was initially fostered by her postoperative ileus but now she has some nausea and vomiting. There is no ileus and the patient is moving her bowels normally. Her albumin level is 1.5. Impression: Crohn's colitis with diverting ileostomy. In the postoperative patient, healing is most important with meeting nutritional needs which is certainly not occurring presently. I have spoken with dietitian. I do not see need for parenteral nutrition but rather enteral nutrition with nasogastric or nasojejunal tube. I will see if this can be placed nasojejunal via interventional radiology and if not, she can have nasogastric tube with addition of Reglan. I have spoken with Dr. Mike and dietary. I will try to touch with Dr. Douglas Valente M.D. and radiology. There is no need for biologic therapy presently in the postoperative period. I would avoid corticosteroids presently as well. She will need close follow-up after discharge. at 1600
--- NOTE | 2017-02-11 19:20 | RADIOLOGY REPORT PS360 ---
CHEST-PORTABLE Ordering Physician: Isabelle Mike MD Patient Age: 61 years: Female HISTORY: NG PLACEMENT. Crohn's disease with recent surgery . Bilateral airspace disease 02/01/2017 CT TECHNIQUE: AP portable upright chest for NG tube placement COMPARISON chest film [address] abdomen pelvis 02/01/2017, includes lung bases. FINDINGS The NG tube is seen passing through the esophagus with tip at mid stomach. Good position NG tube. Prominent Airspace disease at left base obscures left hemidiaphragm. Left lower lobe consolidation with left pleural effusion Minimal hazy airspace disease likely reflecting atelectasis at the right base. Likely trace scant right pleural effusion. Upper lung soto appear clear. No CHF. Heart upper normal in size. [place] and mediastinal structures satisfactory. Postsurgical changes lower C-spine. Postsurgical changes upper right chest or axilla. No free air beneath the diaphragm IMPRESSION: NG tube satisfactory position. Prominent airspace disease/ & consolidation at left lung base- obscures left diaphragm-. Suspect resolving pneumonia and atelectasis With Associated of mild/moderate left pleural effusion. Question subtle minor hazy atelectasis & airspace disease right base
[2017-02-11 19:55] VITALS: BP 145/76
[2017-02-12 03:56] VITALS: BP 140/74
[2017-02-12 08:00] VITALS: BP 147/81
--- NOTE | 2017-02-12 08:21 | ACUTE CARE PROGRESS NOTE (QUA) ---
Progress Notes Subjective Date 02/12/17 Time 0818 Note Patient states she feels about the same today. She has some nausea and had a few episodes of vomiting. She had an NG tube placed for tube feedings last night, however there is apparently no order for tube feedings. She states her whole abdomen is tender. Objective Findings Last VS-Temp:97.5 B/P:147/81 Pulse:105 Resp:18 SaO2:94 ROOM AIR Last weight lbs:121 oz:9 K.14 Method:Bed Scales Laboratory Tests 02/12/17 0608: Sodium 138, Potassium 3.0 L, Chloride 107, Carbon Dioxide 23, BUN 2 L, Creatinine 0.5 L, Estimated Creat Clear 105, Estimated GFR (MDRD) 126, Glucose 88, Calcium 7.3 L Exam General appearance: alert, awake, no acute distress Cardiovascular: regular rate & rhythm Respiratory: clear to auscultation ABD: non-distended, normal bowel sounds, no rebound, soft, no guarding, diffusely ttp, colostomy in place Extremities: no peripheral edema Assessment/Plan Problem List 1. Perforation of colon Status: Acute 2. Peritonitis 3. Colostomy in place Status: Acute 4. Crohn's colitis 5. Anemia Status: Acute 6. Seizure disorder Status: Chronic 7. Tobacco abuse Status: Chronic 8. Hyperlipemia Status: Chronic 9. HTN (hypertension) Status: Chronic 10. COPD (chronic obstructive pulmonary disease) Status: Chronic 11. Malnutrition, calorie Status: Chronic 12. Hx of CABG Status: Chronic 13. History of CHF (congestive heart failure) Status: Chronic 14. CAD (coronary artery disease) Status: Chronic 15. Hypokalemia Status: Acute Plan: Will discuss tube feedings with Dr. Mike and dietary. May need to give another run of potassium. Will continue oral potassium. This inpt stay is expected to cross 2 MNs from start of care Yes (Veronica Ludwig) Subjective Date 02/12/17 Time 0857 Assessment/Plan Problem List 1. Perforation of colon Status: Acute 2. Peritonitis 3. Colostomy in place Status: Acute 4. Crohn's colitis 5. Anemia Status: Acute 6. Seizure disorder Status: Chronic 7. Tobacco abuse Status: Chronic 8. Hyperlipemia Status: Chronic 9. HTN (hypertension) Status: Chronic 10. COPD (chronic obstructive pulmonary disease) Status: Chronic 11. Malnutrition, calorie Status: Chronic 12. Hx of CABG Status: Chronic 13. History of CHF (congestive heart failure) Status: Chronic 14. CAD (coronary artery disease) Status: Chronic 15. Hypokalemia Status: Acute Plan: Pt seen and examined. Dr. Adam consult noted. Will start tube feedins today. Transfer to swing bed. (Isabelle Mike MD) Antibiotic Stewardship (2) Infxn that will respond? Yes Right drug,dose,and route? Yes More targeted antbx? No (Veronica Ludwig) at 0820 at 0858
--- NOTE | 2017-02-12 12:41 | DISCHARGE SUMMARY STANDARD ---
Swing bed H&P and DC summary Discharge from Acute: 02/13/17 Admit to Swin02/13/17 History of present illness: Ms Martinez is a 61 year old female with a history of Seizure disorder, ASCVD, PVD, HTN, COPD and newly diagnosed Crohns disease who presented to the office of A with nausea, vomiting and diarrhea. She stated that she had been vomiting for about 3 days and was unable to retain food or fluids. Her also stated that she was unable to retain her medications. She did have some bloody stools but no hematemesis. In the office she was noted to be very pale. CBC revealed a H&H of 4.2/16 with a WBC of 27.1. She was then directed to [facility] for adm for PRBC infusion and further evaluation and treatment. She has been followed by Dr. Adam. Colonoscopy 10/2017 reveal Crohn's. She became constipated and was started on Miralax with metamucil, after which she developed diarrhea. When she saw Dr. Mike in the office this had cleared and she had just started to eat again. H&H at that time was 11.8/36.5. Medical history: CAD? Yes Angina: No SD: Yes Hypertension? Yes Hyperlipidemia? Yes CHF? No DVT? No PE? No COPD? Yes Asthma? Yes Anemia? Yes GERD? Yes Gastric ulcers? No GI Bleed? No Hernia? No Thyroid Problems? No Hypothyroidism? No CVA? No Seizures? Yes Diabetes? No Renal Insuffiency? No UTI? No Stones? No GB Disease: No Nephritic Syndrome? No Asplenia? No Hepatitis? No Sickle Cell Disease? No Arthritis? No Migraines? Yes Cataracts? No Glaucoma? No MRSA? No HIV? No TB? No Anxiety? Yes Depression? Yes Cancer? No More? Yes Additional hx: CDIFF ANEMIA Crohns Ischemic colitis Surgical history: Previous Surgery?Y HysterectPARTIAL CABG X 3 NECK SX FOR DISC TOE AMPUTATION LEG STENT [employer]ULATOR Home medications: Reported Medications Diclofenac Sodium (Diclofenac Sodium Dr) 75 MG PO BID Furosemide 20 MG PO DAILY Levetiracetam (Keppra) 250 MG PO BID BUTALBIT/ACETAMIN/CAFF/CODEINE (Rhyonr-Phls-Dsdbmdnoexc-Codein) 1 EACH PO Q6HP PRN MIGRAINES Mesalamine (Lialda) 2.4 GM PO BID Atorvastatin Calcium 40 MG PO QHS #30 TAB POTASSIUM CHL (Potassium Chloride) 10 MEQ PO QHS L Gasseri/B Bifidum/B Longum ([employer] Capsule) 1 EACH PO DAILY Omeprazole (Omeprazole Dr) 20 MG PO DAILY Amitriptyline Hcl (Amitriptyline) 25 MG PO QHS Allergies: Coded Allergies: prednisone (02/01/17) Family history: Negative for: CAD, CAD under 40 yrs of age, DM, HTN, TIA, adopted, cancer, coagulopathy, gall bladder disease, hyperlipidemia, seizure, stroke, subarachnoid hemorrhage, sudden cardiac , unknown. Smoking Hx: Tobacco: No Smoker: Former Smoker Type: Cigarettes Packs/day: 1 1/2 - 2 Packs Are you/the child exposed to second-hand smoke: No Alcohol: Alcohol: No Hx of Drug Use: Drug Use? No Patient unresponsive? No Constitutional Positive for: fatigue, lethargy, malaise, weak. ENT No: nasal congestion, sore throat. Cardiovascular No: chest pain, palpitations. Respiratory No: shortness of air, productive cough (sputum), wheezing. GI Positive for: abdominal pain, nausea. No: diarrhea, vomitting. Neurological Positive for: weakness. No: confusion, dizziness, syncope. Musculoskeletal No: extremity pain, joint swelling, myalgias. Vital signs: 1ST Vital Signs Result Date Time Pulse Ox 100 01/30 1359 B/P 111/70 01/30 1359 O2 Delivery ROOM AIR 01/30 1359 Temp 100.0 01/30 1359 Pulse 100 01/30 1359 Resp 20 01/30 1359 O2 Flow Rate 2 02/01 1900 Vital Signs Result Date Time Pulse Ox 96 02/13 0759 B/P 141/74 02/13 0759 O2 Delivery ROOM AIR 02/13 0759 Temp 98.1 02/13 0759 Pulse 90 02/13 0759 Resp 18 02/13 0759 O2 Flow Rate 2 02/04 2030 Exam: General appearance: alert, awake, no acute distress Eyes: EOM's w/normal ROM, PERRLA ENT: mucous membranes moist, nose normal, pharynx normal, NG in place Neck: full range of motion, supple Cardiovascular: regular rate & rhythm Respiratory: clear to auscultation ABD: non-distended, normal bowel sounds, no rebound, soft, no tenderness, no guarding, colostomy in place with good output Extremities: no peripheral edema Musculoskeletal: equal muscle strength, motor intact, sensation intact Skin: pale Neuro: normal mood/affect, oriented, speech clear Problem List: 1. Perforation of colon 2. Peritonitis 3. Colostomy in place 4. Crohn's colitis 5. Anemia 6. Seizure disorder 7. Tobacco abuse 8. Hyperlipemia 9. HTN (hypertension) 10. COPD (chronic obstructive pulmonary disease) 11. Malnutrition, calorie 12. Hx of CABG 13. History of CHF (congestive heart failure) 14. CAD (coronary artery disease) 15. Hypokalemia Plan: The patient is stable to be discharged today to a swing bed for continued tube feedings and rehab. Course: Patient was initially admitted and given 4 units of blood. She was also started on Rocephin and Flagyl. She continued to have extreme pain therefore a CT of the abdomen and pelvis was done which showed pneumoperitoneum. She was taken to emergency surgery where they found a perforation of distal transverse colon just proximal to the splenic flexure with fecal peritonitis in the LEFT upper quadrant characterized by a large amount of liquid stool. She had an exploratory lap and takedown of the splenic flexure along with a creation of end colostomy. She had immediate improvement in her pain. She tolerated the procedure well but her recovery has been very slow. She was seen in consultation by Dr. Adam who felt she needed to be allowed to heal in this perioperative time and go with mesalamine and corticosteroids to achieve initial remission. She would also need to maintain antibiotic therapy as well. She did have to have her potassium replaced numerous times d/t hypokalemia. She was able to be weaned from her TARE MAN pump to oral pain medication. She was started with PT to improve her strength. She did develop edema from third spacing. She was seen again by Dr. Adam who felt she would need tube feedings. These were started on 02/12/17. Her edema improved and her diet was advanced to a full liquid diet. She has some initial nausea and vomiting, but now seems to be tolerating her diet well with good output in the ostomy. She is stable to be transferred today to a swing bed for PT/OT, colostomy care, and tube feedings. Medications: Discharge meds are as noted on medication reconciliation sheet. Disposition: Discharge to swing bed F/U with Dr. Mike Diet - continue same diet Activity - as per PT/OT Rehab Potential: Good Cognition: Average Prognosis: good at 0831
[2017-02-12 16:00] VITALS: BP 153/75
--- NOTE | 2017-02-12 16:48 | SURGEON PROGRESS NOTE ---
Subjective data Subjective data: DEYANIRA ROSARIO is a 61 F .Patient denies complaint of nausea and vomitting.She reports her last pain level as 3 on a 0-10 pain scale. Patient had nasal feeding tube placed yesterday after GI consult to aid in nutrition and healing. She actually has a nasogastric sump type tube. Has had good colostomy output. States she had some nausea today. Assessment findings Assessment Exam General appearance: normal appearance, alert ABD: soft, bowel sounds present, colostomy Patient plan Plan: Ambulate, Up in chair Antibiotic Stewardship (2) Infxn that will respond? Yes Right drug,dose,and route? Yes More targeted antbx? No at [id number]
[2017-02-12 20:15] VITALS: BP 148/72
[2017-02-12 20:34] VITALS: BP 148/72
[2017-02-13 04:04] VITALS: BP 151/76
[2017-02-13 07:59] VITALS: BP 141/74
--- NOTE | 2017-02-13 08:06 | ACUTE CARE PROGRESS NOTE (QUA) ---
Progress Notes Subjective Date 02/13/17 Time 0804 Note Pt feels much better this am. She is sitting up eating breakfast. She has minimal pain and minimal nausea. No vomiting. Tolerating tube feedings and food. Objective Findings Last VS-Temp:98.1 B/P:141/74 Pulse:90 Resp:18 SaO2:96 ROOM AIR Last weight lbs:121 oz:5 K.026 Method:Bed Scales Exam General appearance: alert, awake, no acute distress Cardiovascular: regular rate & rhythm Respiratory: clear to auscultation ABD: non-distended, normal bowel sounds, no rebound, soft, no tenderness, no guarding, colostomy draining well Extremities: no peripheral edema Assessment/Plan Problem List 1. Perforation of colon Status: Acute 2. Peritonitis 3. Colostomy in place Status: Acute 4. Crohn's colitis 5. Anemia Status: Acute 6. Seizure disorder Status: Chronic 7. Tobacco abuse Status: Chronic 8. Hyperlipemia Status: Chronic 9. HTN (hypertension) Status: Chronic 10. COPD (chronic obstructive pulmonary disease) Status: Chronic 11. Malnutrition, calorie Status: Chronic 12. Hx of CABG Status: Chronic 13. History of CHF (congestive heart failure) Status: Chronic 14. CAD (coronary artery disease) Status: Chronic 15. Hypokalemia Status: Acute Plan: Will continue current care. Awaiting care management to determine if patient can be moved to a swing bed. This inpt stay is expected to cross 2 MNs from start of care Yes (Veronica Ludwig) Subjective Date 02/13/17 Time 0844 Assessment/Plan Problem List 1. Perforation of colon Status: Acute 2. Peritonitis 3. Colostomy in place Status: Acute 4. Crohn's colitis 5. Anemia Status: Acute 6. Seizure disorder Status: Chronic 7. Tobacco abuse Status: Chronic 8. Hyperlipemia Status: Chronic 9. HTN (hypertension) Status: Chronic 10. COPD (chronic obstructive pulmonary disease) Status: Chronic 11. Malnutrition, calorie Status: Chronic 12. Hx of CABG Status: Chronic 13. History of CHF (congestive heart failure) Status: Chronic 14. CAD (coronary artery disease) Status: Chronic 15. Hypokalemia Status: Acute Plan: Pt seen and examined. Concur with above. She reports she had one episode of vomiting last night. Some nausea this AM and ate a good amount of her soft diet. No significant pain. Will continue per orders. (Isabelle Mike MD) Antibiotic Stewardship (2) Infxn that will respond? Yes Right drug,dose,and route? Yes More targeted antbx? No (Veronica Ludwig) at 0806 at [phone]
[2017-02-13 09:02] VITALS: BP 141/74
--- NOTE | 2017-02-13 14:49 | SURGEON PROGRESS NOTE ---
Subjective data Subjective data: DEYANIRA ROSARIO is a 61 F .Patient denies complaint of nausea and vomitting.She reports her last pain level as 0 on a 0-10 pain scale. Patient feels a bit better. She is eating full liquids with out any vomiting. She does have some occasional nausea. Tube feeds are running well through the nasogastric sump tube. She has good colostomy output. Assessment findings Assessment Exam General appearance: normal appearance, alert ABD: soft, colostomy Patient plan Plan: Advance diet Additional data: I will go ahead and try to advance her once again to bland diet. Hopefully when she is able to maintain better nutrition the nasogastric tube can be discontinued. Otherwise continue with progressive management. Antibiotic Stewardship (2) Infxn that will respond? Yes Right drug,dose,and route? Yes More targeted antbx? No at [phone]
[2017-02-13 15:16] VITALS: BP 141/74
[2017-02-21] MEDS ORDERED: ZOFRAN4 MG PO (08:23)
[2017-02-21] MEDS ORDERED: OMEPRAZOLE40 MG PO (08:24)
[2017-02-21] MEDS ORDERED: NORCO 325 MG-51 TAB PO (08:24)
== END 2017-02-13 15:48 | disposition swing bed (61) | DRG 329 ==
LOC: 2ND 12:17
PROVIDERS: Family Medicine; Surgery
PROC: 3E0G76Z Introduction of Nutritional Substance into Upper GI, Via Natural or Artificial Opening (ICD-10-PCS; 2017-02-01)
PROC: 0D1L0Z4 Bypass Transverse Colon to Cutaneous, Open Approach (ICD-10-PCS; principal; 2017-02-01 14:30)
PROC: 0DBL0ZZ Excision of Transverse Colon, Open Approach (ICD-10-PCS; principal; 2017-02-01 14:30)
DX: K63.1 Perforation of intestine (nontraumatic) (principal); K65.8 Other peritonitis; E43 Unspecified severe protein-calorie malnutrition; K50.90 Crohn's disease, unspecified, without complications; Z68.1 Body mass index [BMI] 19.9 or less, adult; I10 Essential (primary) hypertension; J44.9 Chronic obstructive pulmonary disease, unspecified; G40.909 Epilepsy, unspecified, not intractable, without status epilepticus; Z95.1 Presence of aortocoronary bypass graft; Z95.828 Presence of other vascular implants and grafts
CPT/HCPCS: J0330; J1335; J2405; J2710; P9016; Q9967

== ENCOUNTER → 2017-03-01 | Outpatient (CLI) | payer MEDICARE ==
[~2017-03-01] MED LIST changes: +DICLOFENAC SODI75 M3 PO; +LIALDA1.2 GM PO; +NORCO 325 MG-51 TAB PO; +OMEPRAZOLE40 MG PO; +PHILLIPS' COLO1 EACH PO; +ZOFRAN4 MG PO
[2017-03-01 16:08] LABS: BUN 8 mg/dL (7-18)
[2017-03-01 16:19] LABS: GFR (ESTIMATED) 64 ML/MIN (59-)
== END ==
LOC: LAB 11:01
PROVIDERS: Family Medicine
DX: E83.52 Hypercalcemia (principal); E87.8 Other disorders of electrolyte and fluid balance, not elsewhere classified